=== PATIENT | female | born 1940 | race Caucasian/White ===

== ENCOUNTER → 2017-02-25 | Outpatient (CLI) | payer MEDICARE, BC ==
[~2017-02-25] MED LIST: CHOL10009; ESOM40CA; FENO200C8; FISH1200; FLUT1DIS23; GABA-528; LATA2.5D2 BOTH EYES; SIMV-39; SYN75; TERA1CAP36 PO; [UNRECOGNIZED DRUG - CODE]
--- NOTE | 2017-02-25 15:26 | RADRPT ---
PROCEDURE: XR right knee. CLINICAL INDICATION: Knee pain. TECHNIQUE: AP weightbearing, lateral weightbearing and sunrise views are available for review. COMPARISON: No comparison available FINDINGS: There is a total knee replacement. There is no evidence of loosening of the prosthesis. There is no evidence of hardware failure. There is diffuse osteopenia No acute fracture or dislocation is seen.N o osseous lesions are identified. The soft tissues are unremarkable . IMPRESSION: Diffuse osteopenia Unremarkable total knee replacement. RPTAT: HGDB .Greg Toth MD, MD Date Time Electronically viewed and signed by .Greg Toth MD, on 02/25/2017 15:26 .B/
--- NOTE | 2017-02-25 15:28 | RADRPT ---
PROCEDURE: XR left knee. CLINICAL INDICATION: Knee pain TECHNIQUE: AP weightbearing, PA weightbearing, lateral weightbearing and sunrise views are availab le for review. COMPARISON: None available FINDINGS: There is severe osteoarthrosis involving the medial tibial femoral compartment and moderate osteoart hrosis involving the lateral tibial femoral compartment and the patellofemoral compartment. This is associated with joint space narrowing, subchondral sclerosis and osteophytosis. There is diffuse ost eopenia. No fractures are identified. No osseous lesions are identified. The soft tissues are unr emarkable. IMPRESSION: Diffuse osteopenia Severe osteoarthrosis involving the medial tibial femoral compartment and moderate osteoarthrosis in volving the lateral tibial femoral compartment and the patellofemoral compartment. RPTAT: HGDB .Greg Toth MD, Date Time Electronically viewed and signed by .Greg Toth MD, on 02/25/2017 15:28 .B/
== END | disposition home or self-care (01) ==
LOC: HKI 13:59
PROVIDERS: ATTEND Orthopaedic Surgery
DX: Z09 Encounter for follow-up examination after completed treatment for conditions other than malignant neoplasm (principal); M17.12 Unilateral primary osteoarthritis, left knee; Z96.651 Presence of right artificial knee joint
CPT/HCPCS: G0463

== ENCOUNTER → 2017-04-05 | Outpatient (CLI) | payer MEDICARE, BC ==
--- NOTE | 2017-04-05 11:33 | RADRPT ---
PROCEDURE: Limited x-ray of both lower extremities. CLINICAL INDICATION: Bilateral leg pain. TECHNIQUE: Single frontal view of both lower extremities was obtained from the hips to the calves. COMPARISON: Bilateral knee radiographs dated 02/25/2017. FINDINGS: There are degenerative changes of the hips with joint space narrowing and osteophytes. There is a r ight knee total arthroplasty. There are degenerative changes of the left knee with joint space narr owing and osteophytes with deformity medially. There is diffuse osteopenia. Vascular calcification s are present consistent with atherosclerosis. IMPRESSION: 1. Moderate degenerative changes of the hips. 2. Right knee total arthroplasty. 3. Severe degenerative changes of the left knee. 4. Diffuse osteopenia. 5. Atherosclerosis. RPTAT: QQ .Paulie Martinez MD, MD Date Time Electronically viewed and signed by .Paulie Martinez MD, on 04/05/2017 11:33 .R/
== END | disposition home or self-care (01) ==
LOC: HKI 10:16
PROVIDERS: ATTEND Orthopaedic Surgery
DX: Z47.1 Aftercare following joint replacement surgery (principal); Z96.651 Presence of right artificial knee joint; M85.869 Other specified disorders of bone density and structure, unspecified lower leg; I70.90 Unspecified atherosclerosis
CPT/HCPCS: 77073

== ENCOUNTER 2017-04-11 07:17 | Inpatient (IN) | payer MEDICARE, BC ==
--- NOTE | 2017-04-02 20:42 | PREOPHP ---
DATE OF ADMISSION: 04/11/[address] Castellano: Thank you very much for allowing me to continue in the care of Ms. Crews. HISTORY OF PRESENT ILLNESS: She is a 76-year-old female, single, who is being brought in electively for left knee arthroplasty after failure of conservative medical treatment. PAST MEDICAL HISTORY: 1. Allergic rhinitis. 2. Chronic kidney disease stage II. 3. Eczema. 4. History of gastric ulcer. 5. Vitamin B12 deficiency. 6. History of iron deficiency. 7. Usual childhood diseases. 8. Hypertension. 9. Hyperlipidemia. 10. Asthmatic COPD. 11. Hypothyroidism. 12. Hemorrhoids. 13. Right bundle branch block. 14. Status post right total knee replacement. 15. Status post right hand trigger finger release. 16. Status post cholecystectomy. 17. Status post left hand tendon release. 18. Status post nasal surgery x2. 19. History of adenomatous colon polyps. 20. Chronic lower extremity edema. ALLERGIES: SHE IS ALLERGIC TO AMOXICILLIN, WHICH GIVES HER A RASH. CURRENT MEDICATIONS: 1. Metformin 500 mg 1/2 tablet q.p.m. 2. Gabapentin 800 at bedtime. 3. Nexium 40 mg b.i.d. 4. Levothyroxine 75 mcg once a day. 5. Diltiazem CD 120 once a day. 6. Furosemide 20 mg once a day. 7. Vitamin D 1000 units once a day. 8. Aspirin 81 mg a day. 9. Advair 500/50 one puff b.i.d. 10. Terazosin 1 mg daily. 11. Montelukast 10 mg a day. 12. Prednisolone eyedrops twice a day. 13. Dymista nasal spray. 14. Simbrinza eyedrops twice a day. HABITS: She is a nonsmoker. No alcohol, no usage of recreational drugs. VACCINES: She had Tenivac and pneumococcal vaccine 11/04/2014. SOCIAL HISTORY: She was born in [place] but raised in [facility]. She has a bachelor's d egree without experience. 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 She is single, lives alone. FAMILY HISTORY: Positive for coronary artery disease, positive for diabetes. Negative for hyperten gerry, negative for stroke, negative for asthma, negative for glaucoma, negative for migraine. Posit jey for colon cancer, positive for breast cancer. REVIEW OF SYSTEMS: HEAD AND EYES: Fully negative. EARS, NOSE, THROAT: Notable for rhinitis and otherwise negative. RESPIRATORY: Negative. CARDIAC: Negative, although she has some limited ambulation. GASTROINTESTINAL: Negative. HEMATOLOGIC: Negative. UROLOGIC: Negative. GYNECOLOGIC: Negative. She is G0, P0, AB0. MUSCULOSKELETAL: Notable for the knee pain, otherwise negative. NEUROLOGIC: Negative. PHYSICAL EXAMINATION: VITAL SIGNS: At time of physical exam, she has a weight of 174 pounds. Height is 5 feet 2-1/2 inch es. Blood pressure 135/70, pulse 73, temperature is 99.1. HEENT: NC/AT. PERRL, EOMI, anicteric, fundi are without note. Tympanic membranes are without note . Oropharynx demonstrates no lesions. NECK: Supple. There is a midline trachea. There is no thyromegaly. Pulses are 2+ without bruits. RESPIRATORY: Clear to auscultation and percussion. CARDIAC: No JVD. Regular rate and rhythm without rubs, murmurs or gallops. PMI is discrete and no ndisplaced. BREASTS: No masses, dimpling or excretions. ABDOMEN: Soft, nontender. Active bowel sounds. No hepatosplenomegaly, no CVA tenderness, no herni as, no bruits. EXTREMITIES: No clubbing or cyanosis. There is 1+ edema. NEUROLOGIC: Nonfocal. LABORATORY DATA: Sodium 142, potassium 4.3, chloride 102, bicarbonate 25, BUN 34, creatinine 1.6, r andom postprandial sugar 120. White count 10.8, hemoglobin 12.3, hematocrit 37.3, platelet count is 225. Protime 11.1 with an INR of 0.93, PTT is 24 seconds. Urinalysis 1.020, pH of 5.5, trace keto peg, trace protein. EKG demonstrates sinus rhythm at 80 with intervals 0.15, 0.11, 0.43, incomplete right bundle branch block and unchanged versus prior EKGs. Chest x-ray was unremarkable. ASSESSMENT AND PLAN: Preoperative medical consultation prior to elective total knee arthroplasty on the left. At this time, I find Ms. Crews to be an acceptable surgical candidate and concur with your plans to proceed with surgery. She is at average surgical risk as compared to her age-matched peers. 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 She should ot herwise do well using all standard and routine anesthesia precautions. Respectfully yours, Dictated By: ANASTACIA CHESTER MD, JR/NTS Conf#: [id number] DID#: [id number] CC: MARIA DEL ROSARIO CASTELLANO MD;*EndCC*
[2017-04-10 10:03] VITALS: BMI 29.3
[~2017-04-11] VITALS: Ht 160 cm; Wt 77.1 kg
[2017-04-11] VITALS (37 sets, daily range): BP systolic 127–160; BP diastolic 49–78; PULSE 62–80; RESP 13–28; Ht 160 cm; Wt 77.1 kg
[2017-04-11] MEDS ORDERED: METF500T3 PO (08:24)
[2017-04-11] MEDS ORDERED: GABA-528 PO (08:25)
[2017-04-11] MEDS ORDERED: ESOM40CA PO (08:26)
[2017-04-11] MEDS ORDERED: LEVO75TA5 PO (08:27)
[2017-04-11] MEDS ORDERED: DILT120C77 PO (08:28)
[2017-04-11] MEDS ORDERED: FURO40TA4 PO (08:29)
[2017-04-11] MEDS ORDERED: ASPI81TA3 PO (08:30)
[2017-04-11] MEDS ORDERED: CHOL100062 PO (08:30)
[2017-04-11] MEDS ORDERED: LACT1CAP56 PO (08:32)
[2017-04-11] MEDS ORDERED: MONT10TA24 PO (08:35)
[2017-04-11] MEDS ORDERED: ADV25050 INHALATION (08:35)
[2017-04-11] MEDS ORDERED: VIT1TABL33 PO (08:35)
[2017-04-11] MEDS ORDERED: BRIN8DRO BOTH EYES (08:36)
[2017-04-11] MEDS ORDERED: LOTE5DRO3 BOTH EYES (08:36)
[2017-04-11] MEDS ORDERED: AZEL23SP NASAL (08:37)
[2017-04-11] MEDS ORDERED: CIPR500T4 PO (08:37)
[2017-04-11] MEDS ORDERED: HC20CR25 TOP (08:37)
[2017-04-11] MEDS ORDERED: oxyCODONE (CR) 10 MG TAB [oxyCONTIN] X1 DOSE PO SCH (09:00)
[2017-04-11] MEDS ORDERED: CELECOXIB 400 MG PO X1 DOSE PO SCH (09:00)
[2017-04-11] MEDS ORDERED: EXPAREL NOTE (BUPIVICAINE LIPOSOMAL) XX SCH (09:00)
[2017-04-11] MEDS ORDERED: BUPIVACAINE LIPOSOME/PF 266 MG/20 ML VIAL INFIL SCH (09:00)
[2017-04-11] MEDS ORDERED: TRANEXAMIC ACID 750 MG in SOD CHLORIDE 0.9% 92.5 ML IV SCH (09:00)
[2017-04-11] MEDS ORDERED: PAIN COCKTAIL-CEFUROXIME IRR SCH ×7 (09:00)
[2017-04-11] MEDS ORDERED: ONDANSETRON 4 MG IV X 1 DOSE IV SCH (09:00)
[2017-04-11] MEDS ORDERED: PREGABALIN 300 MG PO X1 PO SCH (09:00)
[2017-04-11] MEDS ORDERED: LACTATED RINGER'S 1,000 ML IV SCH ×2 (09:00→10:21)
[2017-04-11] MEDS ORDERED: CEFAZOLIN 2GM/50 ML (PMX) 50 ML X1 BEFORE INCISION IVPB SCH (09:00)
[2017-04-11] MEDS ORDERED: traMADOL 50 MG TAB X 1 DOSE PO SCH (09:00)
[2017-04-11] MEDS ORDERED: TRANEXAMIC ACID 750 MG in SOD CHLORIDE 0.9% 100 ML IVPB SCH (09:00)
[2017-04-11] MEDS ORDERED: PROPOFOL 20 ML ONE (09:29)
[2017-04-11] MEDS ORDERED: CEFAZOLIN 1 GM INJ ONE (09:29)
[2017-04-11] MEDS ORDERED: FENTAnyl 50 MCG/ML VIAL ONE (09:29)
[2017-04-11] MEDS ORDERED: MIDAZOLAM 1 MG/ML 2 ML INJ ONE (09:29)
[2017-04-11] MEDS ORDERED: NEOSTIGMINE 3 MG/3 ML SYRINGE ONE (09:29)
[2017-04-11] MEDS ORDERED: ONDANSETRON 4 MG INJ ONE (09:29)
[2017-04-11] MEDS ORDERED: ROCURONIUM 50 MG INJ ONE (09:29)
[2017-04-11] MEDS ORDERED: GLYCOPYRROLATE 0.4 MG INJ ONE (09:29)
[2017-04-11] MEDS ORDERED: DEXAMETHASONE 4 MG/ML 1 ML INJ ONE (09:30)
[2017-04-11] MEDS ORDERED: VANCOMYCIN 1 GM INJ ONE (10:14)
[2017-04-11] MEDS ORDERED: POLYMYXIN B 500000 UNIT INJ ONE (10:14)
[2017-04-11] MEDS ORDERED: BACITRACIN 50000 UNITS INJ ONE (10:17)
--- NOTE | 2017-04-11 10:21 | HPN ---
Date/Time of Note Date/Time of Note DATE: 04/11/17 TIME: 10:20 Interval H&P Admission Note Pt. seen H&P reviewed: No system changes No change from H&P on 04/02/17 by MARIA DEL ROSARIO Fitzpatrick MD Apr 11, 2017 10:20
[2017-04-11] MEDS ORDERED: HEPARIN 1000 UNITS/ML 10 ML INJ ONE (10:25)
[2017-04-11] MEDS ORDERED: MAGNESIUM HYDROXIDE 30ML CUP PO PRN ×2 (10:30→13:30)
[2017-04-11] MEDS ORDERED: ONDANSETRON 4 MG INJ IV PRN ×3 (10:30→13:30)
[2017-04-11] MEDS ORDERED: oxyCODONE 5 MG TAB PO PRN ×4 (10:30→13:30)
[2017-04-11] MEDS ORDERED: NA PHOSPHATE/BIPHOS 133 ML ENEMA PR PRN ×2 (10:30→13:30)
[2017-04-11] MEDS ORDERED: BISACODYL 10 MG SUPP PR PRN ×2 (10:30→13:30)
[2017-04-11] MEDS ORDERED: DIPHENHYDRAMINE 25 MG CAP PO PRN ×2 (10:30→13:30)
[2017-04-11] MEDS ORDERED: NACL 0.9% 3 ML SYG IV SCH ×2 (10:30→13:30)
[2017-04-11] MEDS ORDERED: HYDROmorphONE 1 MG/ML SYG IV PRN ×2 (10:30→13:30)
[2017-04-11] MEDS ORDERED: FENTAnyl 50 MCG/ML VIAL IV PRN ×3 (12:00)
[2017-04-11] MEDS ORDERED: MIDAZOLAM 1 MG/ML 2 ML INJ IV PRN (12:00)
[2017-04-11] MEDS: traMADol 50 MG TAB PO SCH ×2 (12:00→18:00)
[2017-04-11] MEDS ORDERED: EPHEDrine SULFATE 50 MG/5 ML SYG IV PRN (12:00)
[2017-04-11] MEDS ORDERED: OXYCODONE/ACETAMINOPHEN (5/325) TAB PO PRN ×2 (12:00)
[2017-04-11] MEDS ORDERED: TRIMETHOBENZAMIDE 100 MG/ML VIAL IM PRN (12:00)
[2017-04-11] MEDS ORDERED: ACETAMINOPHEN 1000MG/100ML IV 100 ML IVPB SCH (12:00)
[2017-04-11] MEDS ORDERED: LABETALOL HCL 20MG INJ IV PRN (12:00)
[2017-04-11] MEDS ORDERED: HYDROmorphONE (0.2 MG/ML) 10ML SYG IV PRN ×3 (12:00)
[2017-04-11] MEDS ORDERED: DIPHENHYDRAMINE 50 MG INJ IV PRN (12:00)
[2017-04-11] MEDS ORDERED: traMADol 50 MG TAB PO SCH (12:00)
[2017-04-11] MEDS ORDERED: CEFAZOLIN 2 GM/50 ML (PMX) 50 ML IVPB SCH (12:00)
[2017-04-11] MEDS ORDERED: MEPERIDINE 25 MG INJ IV PRN (12:00)
[2017-04-11] MEDS ORDERED: hydrALAzine 20 MG INJ IV PRN (12:00)
[2017-04-11] MEDS ORDERED: PROPOFOL 100 ML ONE (12:33)
[2017-04-11] MEDS ORDERED: ETOMIDATE 20 MG INJ ONE (12:33)
--- NOTE | 2017-04-11 13:16 | OPR ---
Date/Time of Note Date/Time of Note DATE: 04/11/17 TIME: 13:11 Operative Report Procedure Description DATE: 04/11/2017 PREOPERATIVE DIAGNOSIS: Left knee osteoarthritis POSTOPERATIVE DIAGNOSIS: Left knee osteoarthritis OPERATION PERFORMED: Left total knee arthroplasty. SURGEON: Audi Castellano MD COMPONENTS USED: DePuy attune size 5 narrow femoral component, size 4 tibial baseplate, 6 mm polyethylene insert, 32 patella ANESTHESIA: Spinal plus general endotracheal intubation, plus femoral nerve catheter. ANESTHESIOLOGIST: Dr. Gutiérrez TOURNIQUET TIME: 52 minutes. ESTIMATED BLOOD LOSS: 50 mL INTRAVENOUS FLUIDS: 2200 mL SPECIMENS: Bone and soft tissue. DRAINS: Hemovac x1. COMPLICATIONS: None. DISPOSITION: The patient tolerated the procedure well and was taken to the recovery room in stable condition. INDICATIONS: The patient is a 76-year-old woman who has developed severe osteoarthritis of the left knee. She has failed nonsurgical means of treatment to address her pain including activity modifications, pain medications, intra- articular injections, and ambulatory assist devices. Despite these measures she has had continued pain. I felt the patient would benefit from a total knee arthroplasty. The risks, benefits, and alternatives of the procedure were explained in detail to the patient. I explained the risks of the surgery to include but not be limited to, bleeding and possible need for blood transfusion; infection; pain; stiffness; neurovascular injury with possible numbness, weakness, and/or paralysis anywhere from the knee down to the toes; fracture; instability; dislocation; wear and/or loosening of the prosthesis and possible need for future revision; blood clots; pulmonary embolism; and anesthetic complications such as heart attack, stroke, GI bleed, pneumonia, and/or . Ample time was allowed for the patient to ask questions, all of which were addressed and answered. The patient understood the risks involved and wished to proceed. Informed consent was signed prior to the procedure. PROCEDURE: The patient's left knee was initialed with a marking pen in the preoperative area to identify the correct operative site. The patient was brought to the operating room and transferred from the [facility] to the operating table where a spinal anesthetic was administered. The patient was then anesthetized and intubated. A Lawrence catheter was placed. A timeout was performed to confirm that the left leg was the correct operative site. The patient was given 2 g of Ancef within one hour prior to the procedure. A tourniquet was placed on the operative proximal thigh. The operative knee and lower extremity were prepped and draped in the usual sterile fashion. The operative lower extremity was elevated and exsanguinated with an Esmarch tourniquet. The proximal thigh tourniquet was inflated to 300 mmHg. The knee was flexed. A midline incision was made and carried down through the subcutaneous tissue and fat with sharp dissection. Limited medial and lateral flaps were raised. A median parapatellar approach was performed. Synovial fluid was normal in color and consistency. The patella was everted and the knee flexed. There were severe tricompartmental osteoarthritic changes noted. A medial release was performed at the joint line to the midcoronal plane. The ACL and PCL and remnants of the menisci were excised. The stepped drill was used to open up the femoral canal which was irrigated and sucked dry. The intramedullary guide akila was passed up the femur, and the distal cutting block was pinned into place for a 6 degree valgus cut, taking 10 mm of bone off distally. The oscillating saw was used to make the cut. The tibia was subluxed anteriorly. The tibial cutoff jig was placed over the center of the talus distally and over the junction of the medial and middle third of the tibial tubercle proximally. The guide was pinned into place and the oscillating saw was used to make the cut. The tibia was sized. The extension gap was checked and accommodated a 6 mm spacer block with the knee in full extension. There was no varus or valgus instability. At this point, the femur was sized with the posterior referencing guide. Two holes were drilled in 3 degrees of external rotation. The two holes were in line with the transepicondylar axis, perpendicular to Lagrange's line, and in line with the tibial cutoff jig brought up with the knee flexed 90 degrees and tensed with 2 lamina spreaders, suggesting the femoral rotation was correct. The four-in-one cutting block was pinned into place. The anterior and posterior cuts and chamfer cuts were made with the oscillating saw. The flexion gap was checked and accommodated the 6 mm spacer block at 90 degrees. There was no varus or valgus instability, suggesting the flexion and extension gaps were now equal. The central box was cut out on the femur. The tibia was drilled and punched in proper rotation. Trial components were placed into position with a trial insert. The patella was cut down to 13 mm and sized. Three holes were drilled and the trial button placed in position. With all the trials now in place, the knee was taken through range of motion and came to full extension as evidenced by the fact that with the foot on my abdomen and axial loading, there was no tendency for the knee to flex. The knee was able to be flexed to 125 degrees with good patellar tracking with no lateral tilt or subluxation. At this point, I was satisfied with the overall range of motion, stability, and patellar tracking. The trials were removed. The real components were opened. Two bags of cement were mixed, one with and one without premixed antibiotic. The knee was irrigated with antibiotic saline and sucked dry. Once the cement was in a doughy stage, the real components were cemented into place. The knee was held in full extension, and the patellar component was held with a patellar clamp. All excess cement was removed with curettes. As the cement was hardening, the synovial/capsular layer was infiltrated with a mixture of 150 mg of 0.5% Bupivacaine, 8 mg of Duramorph, 300 mcg of epinephrine, 30 mg of Toradol, 100 mcg of clonidine, 750 mg of cefuroxime and 86 mL of normal saline, followed by an injection of 266 mg of liposomal Bupivacaine. A Hemovac drain was placed in the deep portion of the wound and brought out the anterolateral thigh. Once the cement was completely hardened, the trial liner was removed, and the real insert was opened. The tourniquet was let down, and there was good hemostasis. The knee was then irrigated with a mixture of betadine/saline and then antibiotic saline with pulsatile lavage. The real insert was impacted into the tibia and reduced onto to the femur. The arthrotomy was closed with a few interrupted #1 Ethibond in a figure-of- eight fashion, and then closed in a watertight fashion with a running #2 Stratafix suture. Knee flexion was checked against gravity and came to 125 degrees. The subcutaneous layer was irrigated and closed with 2-0 Statafix, and then 3-0 Vicryl and then juan luis on the skin. The wound was covered with an occlusive dressing, and secured with cast padding and a bias dressing. The drain was secured with 3-0 nylon. The sponge and needle counts were correct at the end of the case. The patient was then awakened, extubated, and taken to the recovery room in stable condition. AUDI CASTELLANO MD Apr 11, 2017 13:16
[2017-04-11] MEDS ORDERED: ASPIRIN (EC) 325 MG TAB PO ONE (13:30)
[2017-04-11 13:37] LABS: HEMATOCRIT 34.1 % (37.0-47.0); HEMOGLOBIN 10.2 g/dl (12.0-16.0)
--- NOTE | 2017-04-11 13:56 | CONS ---
Date/Time of Note Date/Time of Note DATE: 04/11/17 TIME: 13:51 Assessment/Plan Assessment/Plan Problems: (1) Aftercare following knee joint replacement surgery Status: Acute Comment: She is successfully postop and seen in recovery room. There does not appear to be any immediate postoperative complications. Will follow routine protocols postoperatively for DVT prophylaxis wound care etc. In addition she will be managed for other medical issues. Qualifiers: Laterality: left Qualified Code: Z47.1 - Aftercare following left knee joint replacement surgery (2) Acquired hypothyroidism Status: Chronic Comment: Continue replacement therapy. (3) Moderate persistent asthma Status: Chronic Comment: Continue routine prophylactic controller treatment Qualifiers: Asthma complication type: uncomplicated Qualified Code: J45.40 - Moderate persistent asthma without complication (4) Type 2 diabetes mellitus with diabetic polyneuropathy Status: Chronic Comment: Stable continue outpatient treatment Qualifiers: Diabetes mellitus ocean transportation intermediary insulin use: without ocean transportation intermediary use Qualified Code: E11.42 - Type 2 diabetes mellitus with diabetic polyneuropathy, without long-term current use of insulin (5) Essential (primary) hypertension Status: Chronic Comment: Adequate control (6) B12 deficiency Status: Chronic Comment: Continue replacement therapy (7) Hyperlipidemia associated with type 2 diabetes mellitus Status: Chronic Comment: Continue statin therapy (8) Allergic rhinitis Status: Chronic Comment: No systemic steroids for this inhaled nasal sprays only. Qualifiers: Allergic rhinitis trigger: other Allergic rhinitis seasonality: non- seasonal Qualified Code: J30.89 - Non-seasonal allergic rhinitis due to other allergic trigger Consultation Date/Type/Reason Admit Date/Time Apr 11, 2017 at 07:17 Initial Consult Date 04/11/2017 Type of Consultation: Internal medicine Reason for Consultation Asthmatic COPD; allergic rhinitis; vitamin B12 deficiency; essential hypertension; diabetes mellitus type 2; hypothyroidism; hyperlipidemia Referring Provider: MARIA DEL ROSARIO CASTELLANO MD 24 HR Interval Summary Free Text/Dictation Linda 76-year-old female status post joint replacement surgery successfully. She is seen in the recovery roompostanesthesia care unit. At this time she complains of dry mouth but otherwise is without complaints Constitutional: no complaints Detailed Summary Respiratory: no complaints Cardiovascular: no complaints Gastrointestinal: no complaints Exam/Review of Systems Vital Signs Vitals Vital Signs Date Time Temp Pulse Resp B/P Pulse Ox O2 Delivery O2 Flow Rate FiO2 04/11/17 09:24 98.2 70 16 160/71 94 Exam Constitutional: alert, oriented Neck: non-tender, supple Respiratory: clear to auscultation, normal air movement Cardiovascular: nl pulses, regular rate and rhythm Gastrointestinal: nl liver, spleen, non-tender, soft Results Result Diagram: 04/11/17 1320 Results 24 hrs Laboratory Tests Test 04/11/17 09:17 04/11/17 13:06 04/11/17 13:20 Bedside Glucose 95 131 Hemoglobin 10.2 L Hematocrit 34.1 L Medications Medications Current Medications Lactated Ringer's (Lr) 1,000 ml @ 125 mls/hr Q8H IV ; Start 04/11/17 at 13:16 Celecoxib 200 mg 200 mg DAILY PO ; Start 04/12/17 at 09:00 Acetaminophen (Ofirmev 1000mg/ 100ml Iv) 100 ml @ 400 mls/hr Q6 IVPB ; Start at 18:00; Stop 04/12/17 at 17:59 Tramadol HCl (Ultram) 50 mg Q6 PO ; Start 04/11/17 at 12:00; Stop 04/14/17 at 11: 59 Oxycodone HCl (Roxicodone) 5 mg Q4H PRN PO PAIN LEVEL 1-3; Start 04/11/17 at 13 :30 Oxycodone HCl (Roxicodone) 10 mg Q4H PRN PO PAIN LEVEL 4-7; Start 04/11/17 at 13:30 Hydromorphone HCl 1 mg 1 mg Q3H PRN IV PAIN LEVEL 8-10; Start 04/11/17 at 13:30 Cefazolin Sodium/ Dextrose (Ancef 2 Gm/50 ml (Pmx)) 50 ml @ 100 mls/hr Q8H IVPB ; Start 04/11/17 at 13:30; Stop 04/12/17 at 05:59 Ondansetron HCl (Zofran Inj) 4 mg Q6H PRN IV NAUSEA AND/OR VOMITING; Start at 13:30 Bisacodyl (Dulcolax Supp) 10 mg Q12H PRN LA CONSTIPATION; Start 04/11/17 at 13: 30 Magnesium Hydroxide (Milk Of Mag) 30 ml BID PRN PO CONSTIPATION; Start at 13:30 Sodium Biphosphate/ Sodium Phosphate (Fleet Enema) 133 ml DAILY PRN LA CONSTIPATION; Start 04/11/17 at 13:30 Docusate Sodium (Colace) 100 mg BID PO ; Start 04/11/17 at 21:00 Diphenhydramine HCl (Benadryl) 25 mg Q6H PRN PO PRURITUS; Start 04/11/17 at 13: 30 Aspirin (Ecotrin) 325 mg BID PO ; Start 04/12/17 at 09:00 Pantoprazole (Protonix Tab) 40 mg BID@06,18 PO ; Start 04/11/17 at 18:00 Pregabalin (Lyrica) 50 mg BID PO ; Start 04/11/17 at 21:00 ANASTACIA CHESTER MD Apr 11, 2017 13:56
[2017-04-11 13:57] LABS: CALCIUM 8.7 mg/dl (8.4-10.2); CREATININE 2.51 mg/dl (0.44-1.00); POTASSIUM 4.8 mmol/L (3.5-5.1)
[2017-04-11] MEDS ORDERED: CYANOCOBALAMIN 1000 MCG INJ IM ONE ×2 (14:00→21:00)
[2017-04-11] MEDS: CEFAZOLIN 2 GM/50 ML (PMX) 50 ML IVPB SCH ×2 (15:55→21:52)
[2017-04-11] MEDS ORDERED: metFORMIN (XR) 500 MG TAB PO SCH (17:30)
--- NOTE | 2017-04-11 17:53 | RADRPT ---
PROCEDURE: Left knee x-ray CLINICAL INDICATION: Postop TECHNIQUE: AP and lateral views of the left knee were obtained. COMPARISON: 02/25/2017 FINDINGS: The patient is status post left knee arthroplasty. The prostheses appear to be well seated. No acu te fracture or dislocation seen. There is nonspecific approximate 1 x 0.5 cm oval calcific appearing density projected anterior to the knee joint on the AP view not seen on the lateral view. Surgical drain. Skin juan luis. Soft tissue air consistent with surgery. Arterial calcification. IMPRESSION: Status post left knee arthroplasty. Nonspecific approximate 1 x 0.5 cm oval calcific appearing dens ity projected anterior to the knee joint on the AP view not seen on the lateral view. Prostheses ap pear to be well seated. Please see above. RPTAT: HJES .Hiram Carrero MD, Date Time Electronically viewed and signed by .Hiram Carrero MD, on 04/11/2017 17:53 .S/
[2017-04-11] MEDS ORDERED: PANTOPRAZOLE (EC) 40 MG TAB PO SCH ×2 (18:00)
[2017-04-11] MEDS: ACETAMINOPHEN 1000MG/100ML IV 100 ML IVPB SCH (18:07)
[2017-04-11] MEDS: CIPROFLOXACIN 500 MG TAB PO SCH (18:11)
[2017-04-11] MEDS: LACTATED RINGER'S 1,000 ML IV SCH ×2 (19:01→21:16)
[2017-04-11] MEDS: BRIMONIDINE 0.2% 5 ML BTL BOTH EYES SCH (21:00)
[2017-04-11] MEDS ORDERED: HYDROCORTISONE 2.5% 20 GM CR TOP SCH (21:00)
[2017-04-11] MEDS ORDERED: NON-FORMULARY/PATIENT OWN MED (Azelastine/Fluticasone (Dymista Nasal Spray) 1 SPRAY) NASAL SCH (21:00)
[2017-04-11] MEDS ORDERED: MONTELUKAST 10 MG TAB PO SCH (21:00)
[2017-04-11] MEDS ORDERED: GABAPENTIN 400 MG CAP PO SCH (21:00)
[2017-04-11] MEDS ORDERED: SALMETEROL/FLUTICASONE 250/50 INHA INH SCH (21:00)
[2017-04-11] MEDS ORDERED: DOCUSATE SODIUM 100 MG CAP PO SCH (21:00)
[2017-04-11] MEDS ORDERED: ASPIRIN (EC) 325 MG TAB PO SCH (21:00)
[2017-04-11] MEDS: TERAZOSIN 1 MG CAP PO SCH (21:00)
[2017-04-11] MEDS ORDERED: CIPROFLOXACIN 500 MG TAB PO SCH (21:00)
[2017-04-11] MEDS: BRINZOLAMIDE 1% 10ML OPH BOTH EYES SCH (21:51)
[2017-04-11] MEDS: SALMETEROL/FLUTICASONE 500/50 INHA INH SCH (21:52)
[2017-04-11] MEDS: GABAPENTIN 400 MG CAP PO SCH (21:53)
[2017-04-11] MEDS: MONTELUKAST 10 MG TAB PO SCH (21:54)
[2017-04-11] MEDS: DOCUSATE SODIUM 100 MG CAP PO SCH (21:54)
[2017-04-11] MEDS: PREGABALIN 50 MG CAP PO SCH (22:00)
[2017-04-12] MEDS: ACETAMINOPHEN 1000MG/100ML IV 100 ML IVPB SCH ×3 (00:14→12:44)
[2017-04-12] MEDS: traMADol 50 MG TAB PO SCH ×4 (00:14→18:01)
[2017-04-12 03:13] LABS: UR BILIRUBIN (Dip) NEGATIVE (NEGATIVE); UR BLOOD (Dip) NEGATIVE (NEGATIVE); UR CLARITY CLEAR (CLEAR); UR COLOR LT. YELLOW (YELLOW); UR GLUCOSE (Dip) NEGATIVE (NEGATIVE); UR KETONES (Dip) NEGATIVE (NEGATIVE); UR LEUKOCYTE ESTERASE (Dip) NEGATIVE (NEGATIVE); UR NITRITE (Dip) NEGATIVE (NEGATIVE); UR UROBILINOGEN (Dip) 0.2 E.U./dL (0.1-1.0)
[2017-04-12] MEDS: LACTATED RINGER'S 1,000 ML IV SCH ×3 (03:14→20:40)
[2017-04-12 03:15] LABS: ADD UMIC NO; UR TOTAL PROTEIN (Dip) NEGATIVE (NEGATIVE)
[2017-04-12 03:17] VITALS: BP 142/60; PULSE 64; RESP 16
[2017-04-12 05:26] LABS: HEMATOCRIT 30.9 % (37.0-47.0); HEMOGLOBIN 9.5 g/dl (12.0-16.0)
[2017-04-12] MEDS: LEVOTHYROXINE 75 MCG TAB PO SCH (05:29)
[2017-04-12] MEDS: PANTOPRAZOLE (EC) 40 MG TAB PO SCH (05:30)
[2017-04-12] MEDS: CEFAZOLIN 2 GM/50 ML (PMX) 50 ML IVPB SCH (05:30)
[2017-04-12 05:51] LABS: CALCIUM 8.4 mg/dl (8.4-10.2); CREATININE 1.98 mg/dl (0.44-1.00); POTASSIUM 5.4 mmol/L (3.5-5.1)
[2017-04-12] MEDS ORDERED: LEVOTHYROXINE 75 MCG TAB PO SCH (07:00)
[2017-04-12 07:23] VITALS: BP 152/68; RESP 18
[2017-04-12] MEDS: PREGABALIN 50 MG CAP PO SCH ×2 (08:49→20:40)
[2017-04-12] MEDS: CELECOXIB 200 MG CAP PO SCH (08:49)
[2017-04-12] MEDS: DOCUSATE SODIUM 100 MG CAP PO SCH ×2 (08:49→20:38)
[2017-04-12] MEDS: ASPIRIN (EC) 325 MG TAB PO SCH ×2 (08:49→20:38)
[2017-04-12] MEDS: DILTIAZEM (CD) 120 MG CAP PO SCH (08:50)
[2017-04-12] MEDS: BRIMONIDINE 0.2% 5 ML BTL BOTH EYES SCH ×2 (08:50→20:41)
[2017-04-12] MEDS: BRINZOLAMIDE 1% 10ML OPH BOTH EYES SCH ×2 (08:50→20:37)
[2017-04-12] MEDS: FLUTICASONE 0.05% 16 GM NAS SPRAY NASAL SCH (08:50)
[2017-04-12] MEDS: SALMETEROL/FLUTICASONE 500/50 INHA INH SCH ×2 (08:50→20:37)
[2017-04-12] MEDS: L ACIDOPHIL/B LACTIS/B LONGUM CAPSULE PO SCH (08:51)
--- NOTE | 2017-04-12 08:57 | PN ---
Date/Time of Note Date/Time of Note DATE: 04/12/17 TIME: 08:56 Assessment/Plan Lines/Catheters IV Catheter Type (from Nrsg): Peripheral IV Lawrence in Place (from Nrsg): Yes Assessment/Plan Assessment/Plan POD # 1. Stable. -Drain d/c'd -OOB with PT -Pain meds -ASA/SCDS -Plan for d/c to [facility] on Sat or Sun Subjective 24 Hr Interval Summary Doing well. Minimal pain. Exam/Review of Systems Vital Signs Vitals Vital Signs Date Time Temp Pulse Resp B/P Pulse Ox O2 Delivery O2 Flow Rate FiO2 04/12/17 07:23 97.5 60 18 152/68 98 04/12/17 03:17 Nasal Cannula 2.0 Intake and Output 04/11/17 04/11/17 04/12/17 15:00 23:00 07:00 Intake Total 2200 ml 290 ml 1830 ml Output Total 100 ml 320 ml 840 ml Balance 2100 ml -30 ml 990 ml Exam Free Text/Dictation Hemovac: 160 cc Dressing dry Incision clean, dry, and intact without redness or drainage 5/5 Tibialis Anterior, EHL, Gastroc Soleus, Peroneals Normal sensation Palpable DP/PT, CR < 2 Sec No distal edema Xrays: TKA in good position Results Result Diagram: 04/12/1741904/12/17419 MARIA DEL ROSARIO CASTELLANO MD Apr 12, 2017 08:57
[2017-04-12] MEDS ORDERED: metFORMIN (XR) 500 MG TAB PO SCH (09:00)
[2017-04-12] MEDS ORDERED: CELECOXIB 200 MG CAP PO SCH (09:00)
[2017-04-12] MEDS ORDERED: COPPER PO SCH (09:00)
[2017-04-12] MEDS ORDERED: DILTIAZEM (CD) 120 MG CAP PO SCH (09:00)
[2017-04-12] MEDS ORDERED: CHOLECALCIFEROL 1,000 UNIT TAB PO SCH (09:00)
[2017-04-12] MEDS ORDERED: VIT A PO SCH (09:00)
[2017-04-12] MEDS ORDERED: [UNRECOGNIZED DRUG - OTHER] PO SCH (09:00)
[2017-04-12] MEDS ORDERED: FUROSEMIDE 40 MG TAB PO SCH (09:00)
[2017-04-12] MEDS ORDERED: VIT C PO SCH (09:00)
[2017-04-12] MEDS ORDERED: ZINC PO SCH (09:00)
[2017-04-12] MEDS ORDERED: VIT E PO SCH (09:00)
[2017-04-12] MEDS ORDERED: LOTEPREDNOL ETABONATE BOTH EYES SCH (09:00)
--- NOTE | 2017-04-12 13:46 | PN ---
Date/Time of Note Date/Time of Note DATE: 04/12/17 TIME: 13:43 Assessment/Plan VTE Prophylaxis VTE Prophylaxis Intervention: heparin Lines/Catheters IV [facility]from [facility] Peripheral IV Urinary Cath still in place: Yes Reason Cath still needed: urinary retention Assessment/Plan Problems: (1) Acquired hypothyroidism Status: Chronic Comment: Stable on replacement therapy continue same. (2) Moderate persistent asthma Status: Chronic Comment: Well-controlled on stable controller medications without incident. Qualifiers: Asthma complication type: uncomplicated Qualified Code: J45.40 - Moderate persistent asthma without complication (3) Type 2 diabetes mellitus with diabetic polyneuropathy Status: Chronic Comment: Adequate control on current medication regimen. No polys no hypo- Qualifiers: Diabetes mellitus halfway insulin use: without termite control representative use Qualified Code: E11.42 - Type 2 diabetes mellitus with diabetic polyneuropathy, without long-term current use of insulin (4) Essential (primary) hypertension Status: Chronic Comment: Adequate control on current regimen (5) Aftercare following knee joint replacement surgery Status: Acute Comment: She is going through physical therapy and progressing nominally. Assuming everything goes well the plan is for her to go to an ECF in the next 24 -48 hours Qualifiers: Laterality: left Qualified Code: Z47.1 - Aftercare following left knee joint replacement surgery (6) Hyperlipidemia associated with type 2 diabetes mellitus Status: Chronic Comment: Controlled with statin therapy (7) B12 deficiency Status: Chronic Comment: Adequately replaced Subjective 24 Hr Interval Summary Free Text/Dictation Patient is up and ambulating with a front wheeled walker with physical therapy now Constitutional: no complaints (No fevers chills or sweats) Respiratory: no complaints (No cough no wheezing no shortness of breath) Cardiovascular: no complaints (No chest pain no palpitations no orthopnea no PND) Gastrointestinal: no complaints Musculoskeletal: other (Pain behind the left knee that was operated otherwise doing well) Exam/Review of Systems Vital Signs Vitals Vital Signs Date Time Temp Pulse Resp B/P Pulse Ox O2 Delivery O2 Flow Rate FiO2 04/12/17 07:23 97.5 60 18 152/68 98 04/12/17 03:17 Nasal Cannula 2.0 Intake and Output 04/11/17 04/11/17 04/12/17 15:00 23:00 07:00 Intake Total 2200 ml 290 ml 1830 ml Output Total 100 ml 320 ml 840 ml Balance 2100 ml -30 ml 990 ml Exam Constitutional: alert, oriented Neck: non-tender, supple Respiratory: clear to auscultation, normal air movement Cardiovascular: nl pulses, regular rate and rhythm Extremities: other (Left leg bandaged but in motion) Neurological: 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 YELLOW Urine Clarity CLEAR Urine pH 5.5 Urine Specific Babb >=1.030 H Urine Ketones NEGATIVE Urine Nitrite NEGATIVE Urine Bilirubin NEGATIVE Urine Urobilinogen 0.2 E.U./dL Urine Leukocyte Esterase NEGATIVE Urine Hemoglobin NEGATIVE Urine Glucose NEGATIVE Urine Total Protein NEGATIVE Hemoglobin 9.5 L Hematocrit 30.9 L Sodium Level 133 L Potassium Level 5.4 H Chloride Level 102 Carbon Dioxide Level 24 Anion Gap 12 Blood Urea Nitrogen 42 H Creatinine 1.98 H Glucose Level 165 Calcium Level 8.4 Bedside Glucose 131 Medications Medications Current Medications Lactated Ringer's (Lr) 1,000 ml @ 125 mls/hr Q8H IV Last administered on 03:14; Admin Dose 125 MLS/HR; Start 04/11/17 at 13:16 Celecoxib 200 mg 200 mg DAILY PO Last administered on 04/12/17 08:49; Admin Dose 200 MG; Start 04/12/17 at 09:00 Acetaminophen (Ofirmev 1000mg/ 100ml Iv) 100 ml @ 400 mls/hr Q6 IVPB Last administered on 04/12/17 12:44; Admin Dose 400 MLS/HR; Start 04/11/17 at 18:00 ; Stop 04/12/17 at 17:59 Tramadol HCl (Ultram) 50 mg Q6 PO Last administered on 04/12/17 12:44; Admin Dose 50 MG; Start 04/11/17 at 12:00; Stop 04/14/17 at 11:59 Oxycodone HCl (Roxicodone) 5 mg Q4H PRN PO PAIN LEVEL 1-3; Start 04/11/17 at 13 :30 Oxycodone HCl (Roxicodone) 10 mg Q4H PRN PO PAIN LEVEL 4-7; Start 04/11/17 at 13:30 Hydromorphone HCl (Dilaudid) 1 mg Q3H PRN IV PAIN LEVEL 8-10; Start 04/11/17 at 13:30 Ondansetron HCl (Zofran Inj) 4 mg Q6H PRN IV NAUSEA AND/OR VOMITING; Start at 13:30 Bisacodyl (Dulcolax Supp) 10 mg Q12H PRN [place] CONSTIPATION; Start 04/11/17 at 13: 30 Magnesium Hydroxide (Milk Of Mag) 30 ml BID PRN PO CONSTIPATION; Start at 13:30 Sodium Biphosphate/ Sodium Phosphate (Fleet Enema) 133 ml DAILY PRN [place] CONSTIPATION; Start 04/11/17 at 13:30 Docusate Sodium (Colace) 100 mg BID PO Last administered on 04/12/17 08:49; Admin Dose 100 MG; Start 04/11/17 at 21:00 Diphenhydramine HCl (Benadryl) 25 mg Q6H PRN PO PRURITUS; Start 04/11/17 at 13: 30 Aspirin (Ecotrin) 325 mg BID PO Last administered on 04/12/17 08:49; Admin Dose 325 MG; Start 04/12/17 at 09:00 Pregabalin (Lyrica) 50 mg BID PO Last administered on 04/12/17 08:49; Admin Dose 50 MG; Start 04/11/17 at 21:00 Brinzolamide (Azopt) 1 drop BID BOTH EYES Last administered on 04/12/17 08:50 ; Admin Dose 1 DROP; Start 04/11/17 at 21:00 Lactobacillus Acidophilus (Florajen3 Capsule) 1 each DAILY PO Last administered on 04/12/17 08:51; Admin Dose 1 EACH; Start 04/12/17 at 09:00 Pantoprazole (Protonix Tab) 40 mg DAILY@06 PO Last administered on 04/12/17 05 :30; Admin Dose 40 MG; Start 04/12/17 at 06:00 Salmeterol Xinafoate/ Fluticasone (Advair 500/50 Diskus) 1 inh BID INH Last administered on 04/12/17 08:50; Admin Dose 1 INH; Start 04/11/17 at 21:00 Montelukast Sodium (Singulair) 10 mg HS PO Last administered on 04/11/17 21:54 ; Admin Dose 10 MG; Start 04/11/17 at 21:00 Levothyroxine Sodium (Synthroid) 75 mcg DAILY@06 PO Last administered on 05:29; Admin Dose 75 MCG; Start 04/12/17 at 06:00 Terazosin HCl (Hytrin) 1 mg HS PO ; Start 04/11/17 at 21:00 Diltiazem HCl (Cardizem Cd) 120 mg DAILY PO Last administered on 04/12/17 08: 50; Admin Dose 120 MG; Start 04/12/17 at 09:00 Gabapentin (Neurontin) 800 mg QHS PO Last administered on 04/11/17 21:53; Admin Dose 800 MG; Start 04/11/17 at 21:00 Brimonidine Tartrate (Alphagan 0.2%) 1 drop BID BOTH EYES Last administered on 04/12/17 08:50; Admin Dose 1 DROP; Start 04/11/17 at 21:00 Ciprofloxacin (Cipro) 500 mg Q24H PO Last administered on 04/11/17 18:11; Admin Dose 500 MG; Start 04/11/17 at 18:00 Fluticasone Propionate (Flonase 0.05% Nasal) 1 spray DAILY NASAL Last administered on 04/12/17 08:50; Admin Dose 1 SPRAY; Start 04/12/17 at 09:00 ANASTACIA CHESTER MD Apr 12, 2017 13:45
[2017-04-12] MEDS: CIPROFLOXACIN 500 MG TAB PO SCH (18:01)
[2017-04-12 19:20] VITALS: BP 159/69; RESP 20
[2017-04-12] MEDS: MONTELUKAST 10 MG TAB PO SCH (20:38)
[2017-04-12] MEDS: GABAPENTIN 400 MG CAP PO SCH (20:38)
[2017-04-12] MEDS: TERAZOSIN 1 MG CAP PO SCH (20:38)
[2017-04-13] MEDS: traMADol 50 MG TAB PO SCH ×4 (00:09→17:54)
[2017-04-13] MEDS: LACTATED RINGER'S 1,000 ML IV SCH ×3 (04:25→21:16)
[2017-04-13 05:12] LABS: HEMATOCRIT 31.8 % (37.0-47.0); HEMOGLOBIN 9.7 g/dl (12.0-16.0)
[2017-04-13] MEDS: PANTOPRAZOLE (EC) 40 MG TAB PO SCH (05:26)
[2017-04-13] MEDS: LEVOTHYROXINE 75 MCG TAB PO SCH (05:26)
[2017-04-13 05:50] LABS: CALCIUM 8.4 mg/dl (8.4-10.2); CREATININE 2.05 mg/dl (0.44-1.00); POTASSIUM 4.7 mmol/L (3.5-5.1)
[2017-04-13 07:28] VITALS: BP 143/61; RESP 18
[2017-04-13] MEDS: FLUTICASONE 0.05% 16 GM NAS SPRAY NASAL SCH (08:42)
[2017-04-13] MEDS: SALMETEROL/FLUTICASONE 500/50 INHA INH SCH ×2 (08:42→20:37)
[2017-04-13] MEDS: ASPIRIN (EC) 325 MG TAB PO SCH ×2 (08:43→20:34)
[2017-04-13] MEDS: PREGABALIN 50 MG CAP PO SCH ×2 (08:43→20:35)
[2017-04-13] MEDS: DOCUSATE SODIUM 100 MG CAP PO SCH ×2 (08:43→20:33)
[2017-04-13] MEDS: L ACIDOPHIL/B LACTIS/B LONGUM CAPSULE PO SCH (08:43)
[2017-04-13] MEDS: CELECOXIB 200 MG CAP PO SCH (08:43)
[2017-04-13] MEDS: BRINZOLAMIDE 1% 10ML OPH BOTH EYES SCH ×2 (08:43→20:35)
[2017-04-13] MEDS: BRIMONIDINE 0.2% 5 ML BTL BOTH EYES SCH ×2 (08:43→20:35)
[2017-04-13] MEDS: DILTIAZEM (CD) 120 MG CAP PO SCH (08:46)
--- NOTE | 2017-04-13 09:04 | PN ---
Date/Time of Note Date/Time of Note DATE: 04/13/17 TIME: 09:02 Assessment/Plan VTE Prophylaxis VTE Prophylaxis Intervention: ambulation, SCD's, other (Aspirin 325 mg twice daily) Lines/Catheters IV Catheter Type (from Nrsg): Peripheral IV Lawrence in Place (from Nrsg): Yes Assessment/Plan Assessment/Plan -Incision: Clean, Dry and Intact without any redness or drainage -5/5 Tibialis Anterior, EHL Gastrocnemius/Soleus and Peroneals -Normal Sensation -Palpable DP/PT, Capillary Refill <2 secs -No Distal Edema -Negative Dinesh Sign/No calf pain -Discussed with nurse directly that if patient does not have bowel movement, no transfer to snf facility until defecation has been had. If milk of magnesia is not effective, suppository recommended and nurse aware. -Toes Freely Movable -Continue to await approval/authorization for transfer to snf facility. Subjective 24 Hr Interval Summary 76-year-old female postop day 2 status post left total knee arthroplasty. Patient is up and out of bed with physical therapy. Using front wheeled walker as tolerated. Pain is well controlled. Denies any complaints overnight. There is concern however as patient has not had bowel movement. Milk of magnesia was provided and confirmed after speaking with nurse. Has not had bowel movement in 3 days. Pain Control: well controlled Exam/Review of Systems Vital Signs Vitals Vital Signs Date Time Temp Pulse Resp B/P Pulse Ox O2 Delivery O2 Flow Rate FiO2 04/13/17 07:28 97.6 66 18 143/61 94 04/12/17 03:17 Nasal Cannula 2.0 Intake and Output 04/12/17 04/12/17 04/13/17 15:00 23:00 07:00 Intake Total 775 ml 1420 ml 800 ml Output Total 1700 ml 580 ml Balance 775 ml -280 ml 220 ml Exam Free Text/Dictation -Incision: Clean, Dry and Intact without any redness or drainage -5/5 Tibialis Anterior, EHL Gastrocnemius/Soleus and Peroneals -Normal Sensation -Palpable DP/PT, Capillary Refill <2 secs -No Distal Edema -Negative Dinesh Sign/No calf pain -Toes Freely Movable Constitutional: alert, oriented, well developed Results Result Diagram: 04/13/1743904/13/17439 ALANA RICHMOND PA-C Apr 13, 2017 09:04
--- NOTE | 2017-04-13 11:31 | CONS ---
Date/Time of Note Date/Time of Note DATE: 04/13/17 TIME: 11:18 Assessment/Plan Assessment/Plan Problems: (1) Type 2 diabetes mellitus with diabetic polyneuropathy Status: Chronic Comment: On no meds. FBG levels have been relatively controlled. Not checking FS values. Will monitor. Cont. lyrica and gabapentin. Qualifiers: Diabetes mellitus half-way insulin use: without intermediate manager use Qualified Code: E11.42 - Type 2 diabetes mellitus with diabetic polyneuropathy, without long-term current use of insulin (2) Essential (primary) hypertension Status: Chronic Comment: Mildly elevated. Pt. on diltiazem and terazosin. Will continue. (3) Hyperlipidemia associated with type 2 diabetes mellitus Status: Chronic Comment: Not currently on any therapy. Defer to pt.'s PMD. (4) Acquired hypothyroidism Status: Chronic Comment: Cont. LT4 at current dosage. (5) Moderate persistent asthma Status: Chronic Comment: Cont. advair and rescue inhaler if needed. Qualifiers: Asthma complication type: uncomplicated Qualified Code: J45.40 - Moderate persistent asthma without complication (6) History of gastric ulcer Status: Chronic Comment: Cont. pantoprazole (7) Allergic rhinitis Status: Chronic Comment: Cont. montelukast daily Qualifiers: Allergic rhinitis trigger: other Allergic rhinitis seasonality: non- seasonal Qualified Code: J30.89 - Non-seasonal allergic rhinitis due to other allergic trigger (8) Edema of both legs Status: Chronic Comment: Not edematous currently (9) Chronic kidney disease, stage III (moderate) Status: Chronic Comment: Stable (10) Glaucoma Status: Chronic Comment: On Azopt Qualifiers: Glaucoma type: open-angle (11) Drug-induced constipation Status: Acute Comment: Likely cause of N/V this am. Trial of dulcolax 10 mg suppository x 1. (12) Aftercare following knee joint replacement surgery Status: Acute Comment: Doing well POD#2. May be well enough for d/c to SNF today if able to have BM. Will defer to primary team. Qualifiers: Laterality: left Qualified Code: Z47.1 - Aftercare following left knee joint replacement surgery Consultation Date/Type/Reason Admit Date/Time Apr 11, 2017 at 07:17 Initial Consult Date 04/02/2017 Type of Consultation: Internal medicine Reason for Consultation Medical Management Referring Provider: MARIA DEL ROSARIO CASTELLANO MD 24 HR Interval Summary Constitutional: improved, no complaints Detailed Summary Respiratory: no complaints Cardiovascular: no complaints Gastrointestinal: constipation, decreased appetite, nausea, vomiting (x 1 this am), No passing stool Genitourinary: no complaints Musculoskeletal: bone/joint pain (minimal, feels a little unsteady when she walks) Neurologic: no complaints Exam/Review of Systems Vital Signs Vitals VS - Last 72 Hours, by Label Date Time Temp Pulse Resp B/P Pulse Ox O2 Delivery O2 Flow Rate FiO2 04/13/17 07:28 97.6 66 18 143/61 94 04/12/17 19:20 98.3 59 20 159/69 98 04/12/17 07:23 97.5 60 18 152/68 98 04/12/17 03:17 97.3 64 16 142/60 98 Nasal Cannula 2.0 04/11/17 23:00 98.2 67 16 141/78 98 Nasal Cannula 2.0 04/11/17 21:50 80 16 150/60 99 Nasal Cannula 2.0 04/11/17 21:23 98.1 61 20 160/70 99 04/11/17 21:00 68 16 135/64 99 Nasal Cannula 2.0 04/11/17 20:45 68 16 148/67 98 Nasal Cannula 2.0 04/11/17 20:30 69 16 148/66 99 Nasal Cannula 2.0 04/11/17 20:15 Nasal Cannula 2.0 04/11/17 20:15 98.0 69 16 159/67 98 Nasal Cannula 2.0 04/11/17 20:09 66 16 152/71 99 Nasal Cannula 2.0 04/11/17 19:54 16 155/68 99 Nasal Cannula 2.0 04/11/17 19:39 67 16 150/65 98 Nasal Cannula 2.0 04/11/17 19:24 97.5 70 16 155/64 98 Nasal Cannula 2.0 04/11/17 18:51 97.5 72 16 141/68 98 Nasal Cannula 2.0 04/11/17 18:29 97.9 68 28 140/67 100 Nasal Cannula 2.0 04/11/17 18:21 70 16 145/65 99 Nasal Cannula 2.0 04/11/17 18:16 72 19 147/60 99 Nasal Cannula 2.0 04/11/17 17:46 74 20 138/63 98 Nasal Cannula 2.0 04/11/17 17:16 72 13 128/69 99 Nasal Cannula 2.0 04/11/17 16:46 66 15 131/74 100 Nasal Cannula 2.0 04/11/17 16:16 68 25 127/63 99 Nasal Cannula 2.0 04/11/17 15:46 70 17 139/59 98 Nasal Cannula 2.0 04/11/17 15:16 66 18 141/70 100 Nasal Cannula 2.0 04/11/17 14:46 70 14 154/67 100 Nasal Cannula 2.0 04/11/17 14:16 62 13 147/61 100 Nasal Cannula 2.0 04/11/17 14:01 98.1 64 21 141/76 100 Nasal Cannula 2.0 04/11/17 13:56 64 14 141/55 100 Nasal Cannula 2.0 04/11/17 13:51 64 18 140/49 100 Nasal Cannula 2.0 04/11/17 13:46 64 15 127/62 100 Nasal Cannula 2.0 04/11/17 13:41 68 25 143/71 99 Nasal Cannula 2.0 04/11/17 13:36 66 19 146/70 99 Nasal Cannula 2.0 04/11/17 13:31 66 16 134/68 99 Nasal Cannula 2.0 04/11/17 13:26 66 19 142/64 100 Nasal Cannula 2.0 04/11/17 13:21 66 17 141/59 99 Nasal Cannula 2.0 04/11/17 13:16 68 25 144/57 99 Nasal Cannula 2.0 04/11/17 13:11 74 24 141/62 97 Nasal Cannula 2.0 04/11/17 13:06 74 15 147/62 99 Nasal Cannula 2.0 04/11/17 13:02 98.6 77 14 136/68 100 Nasal Cannula 2.0 04/11/17 13:02 Nasal Cannula 2.0 04/11/17 09:24 98.2 70 16 160/71 94 Vital Signs Date Time Temp Pulse Resp B/P Pulse Ox O2 Delivery O2 Flow Rate FiO2 04/13/17 07:28 97.6 66 18 143/61 94 04/12/17 03:17 Nasal Cannula 2.0 Intake and Output 04/12/17 04/12/17 04/13/17 15:00 23:00 07:00 Intake Total 775 ml 1420 ml 800 ml Output Total 1700 ml 580 ml Balance 775 ml -280 ml 220 ml Exam Constitutional: alert, obese, oriented Psych: nl mood/affect, no complaints Respiratory: clear to auscultation, normal air movement Cardiovascular: nl pulses, regular rate and rhythm, No edema, No murmurs/extra sounds, No rub Gastrointestinal: bowel sounds, distended, nl liver, spleen, non-tender, soft, tender Musculoskeletal: nl extremities to inspection Extremities: normal pulses, No clubbing, No cyanosis, No edema Neurological: NUCLEAR MEDICINE TECH II-XII intact, nl mental status, nl speech, nl strength Results Result Diagram: 04/13/1743904/13/17 044 Results 24 hrs Laboratory Tests Test 04/12/17 17:49 04/13/17 04:40 Bedside Glucose 129 Hemoglobin 9.7 L Hematocrit 31.8 L Sodium Level 131 L Potassium Level 4.7 Chloride Level 100 Carbon Dioxide Level 26 Anion Gap 10 Blood Urea Nitrogen 44 H Creatinine 2.05 H Glucose Level 98 # Calcium Level 8.4 Medications Medications Current Medications Lactated Ringer's (Lr) 1,000 ml @ 125 mls/hr Q8H IV Last administered on 03:14; Admin Dose 125 MLS/HR; Start 04/11/17 at 13:16 Celecoxib (Celebrex) 200 mg DAILY PO Last administered on 04/13/17 08:43; Admin Dose 200 MG; Start 04/12/17 at 09:00 Tramadol HCl (Ultram) 50 mg Q6 PO Last administered on 04/13/17 05:26; Admin Dose 50 MG; Start 04/11/17 at 12:00; Stop 04/14/17 at 11:59 Oxycodone HCl (Roxicodone) 5 mg Q4H PRN PO PAIN LEVEL 1-3; Start 04/11/17 at 13 :30 Oxycodone HCl (Roxicodone) 10 mg Q4H PRN PO PAIN LEVEL 4-7; Start 04/11/17 at 13:30 Hydromorphone HCl (Dilaudid) 1 mg Q3H PRN IV PAIN LEVEL 8-10; Start 04/11/17 at 13:30 Ondansetron HCl (Zofran Inj) 4 mg Q6H PRN IV NAUSEA AND/OR VOMITING Last administered on 04/12/17 21:34; Admin Dose 4 MG; Start 04/11/17 at 13:30 Bisacodyl (Dulcolax Supp) 10 mg Q12H PRN [place] CONSTIPATION; Start 04/11/17 at 13: 30 Magnesium Hydroxide (Milk Of Mag) 30 ml BID PRN PO CONSTIPATION Last administered on 04/13/17 05:34; Admin Dose 30 ML; Start 04/11/17 at 13:30 Sodium Biphosphate/ Sodium Phosphate (Fleet Enema) 133 ml DAILY PRN [place] CONSTIPATION; Start 04/11/17 at 13:30 Docusate Sodium (Colace) 100 mg BID PO Last administered on 04/13/17 08:43; Admin Dose 100 MG; Start 04/11/17 at 21:00 Diphenhydramine HCl (Benadryl) 25 mg Q6H PRN PO PRURITUS; Start 04/11/17 at 13: 30 Aspirin (Ecotrin) 325 mg BID PO Last administered on 04/13/17 08:43; Admin Dose 325 MG; Start 04/12/17 at 09:00 Pregabalin (Lyrica) 50 mg BID PO Last administered on 04/13/17 08:43; Admin Dose 50 MG; Start 04/11/17 at 21:00 Brinzolamide (Azopt) 1 drop BID BOTH EYES Last administered on 04/13/17 08:43; Admin Dose 1 DROP; Start 04/11/17 at 21:00 Lactobacillus Acidophilus (Florajen3 Capsule) 1 each DAILY PO Last administered on 04/13/17 08:43; Admin Dose 1 EACH; Start 04/12/17 at 09:00 Pantoprazole (Protonix Tab) 40 mg DAILY@06 PO Last administered on 04/13/17 05: 26; Admin Dose 40 MG; Start 04/12/17 at 06:00 Salmeterol Xinafoate/ Fluticasone (Advair 500/50 Diskus) 1 inh BID INH Last administered on 04/13/17 08:42; Admin Dose 1 INH; Start 04/11/17 at 21:00 Montelukast Sodium (Singulair) 10 mg HS PO Last administered on 04/12/17 20:38 ; Admin Dose 10 MG; Start 04/11/17 at 21:00 Levothyroxine Sodium (Synthroid) 75 mcg DAILY@06 PO Last administered on 05:26; Admin Dose 75 MCG; Start 04/12/17 at 06:00 Terazosin HCl (Hytrin) 1 mg HS PO Last administered on 04/12/17 20:38; Admin Dose 1 MG; Start 04/11/17 at 21:00 Diltiazem HCl (Cardizem Cd) 120 mg DAILY PO Last administered on 04/13/17 08:46 ; Admin Dose 120 MG; Start 04/12/17 at 09:00 Gabapentin (Neurontin) 800 mg QHS PO Last administered on 04/12/17 20:38; Admin Dose 800 MG; Start 04/11/17 at 21:00 Brimonidine Tartrate (Alphagan 0.2%) 1 drop BID BOTH EYES Last administered on 04/13/17 08:43; Admin Dose 1 DROP; Start 04/11/17 at 21:00 Ciprofloxacin (Cipro) 500 mg Q24H PO Last administered on 04/12/17 18:01; Admin Dose 500 MG; Start 04/11/17 at 18:00 Fluticasone Propionate (Flonase 0.05% Nasal) 1 spray DAILY NASAL Last administered on 04/13/17 08:42; Admin Dose 1 SPRAY; Start 04/12/17 at 09:00 DAVID MTZ MD Apr 13, 2017 11:29
[2017-04-13] MEDS: CIPROFLOXACIN 500 MG TAB PO SCH (17:54)
[2017-04-13 19:35] VITALS: BP 158/63; RESP 18
[2017-04-13] MEDS: GABAPENTIN 400 MG CAP PO SCH (20:34)
[2017-04-13] MEDS: MONTELUKAST 10 MG TAB PO SCH (20:35)
[2017-04-13] MEDS: TERAZOSIN 1 MG CAP PO SCH (20:35)
[2017-04-14] MEDS: traMADol 50 MG TAB PO SCH ×2 (00:20→05:45)
[2017-04-14] MEDS: LACTATED RINGER'S 1,000 ML IV SCH ×2 (05:08→13:16)
[2017-04-14 05:12] LABS: HEMATOCRIT 30.8 % (37.0-47.0); HEMOGLOBIN 9.2 g/dl (12.0-16.0)
[2017-04-14 05:32] LABS: CALCIUM 8.3 mg/dl (8.4-10.2); CREATININE 1.91 mg/dl (0.44-1.00); POTASSIUM 5.9 mmol/L (3.5-5.1)
[2017-04-14] MEDS: LEVOTHYROXINE 75 MCG TAB PO SCH (05:45)
[2017-04-14] MEDS: PANTOPRAZOLE (EC) 40 MG TAB PO SCH (05:45)
[2017-04-14 07:18] VITALS: BP 153/67; RESP 20
--- NOTE | 2017-04-14 07:45 | PDOCDIS ---
Discharge Instructions DIAGNOSIS Discharge Diagnosis Status post left total knee arthroplasty CONDITION Patient Condition: Stable HOME CARE INSTRUCTIONS: Diet Instructions: RegularSpecial Diet: CLEAR LIQUID ACTIVITY: Activity Restrictions: Slowly Increase Activity Rest between Activity Avoid heavy lifting No Sexual Activity Do not Drive Do not operate Machinery Do not operate Power Tool Avoid Heavy Housework Keep Limb Elevated (And use ice modalities.) Weight Bearing (As tolerated with front wheeled walker) Bathing Restrictions: Shower (Using Tegaderm with pad. Apply prior to shower. May remove after shower. Repeat the steps each days until juan luis are removed around 10 days postoperatively) FOLLOW UP/APPOINTMENTS Follow-up Plan With Dr. Rogers at 10 days postop. ALANA RICHMOND PA-C Apr 14, 2017 07:45
--- NOTE | 2017-04-14 07:50 | PN ---
Date/Time of Note Date/Time of Note DATE: 04/14/17 TIME: 07:48 Assessment/Plan VTE Prophylaxis VTE Prophylaxis Intervention: ambulation, SCD's, other (Aspirin 325 mg twice daily) Lines/Catheters IV Catheter Type (from Nrs): Saline Lock [place] in Place (from Nrsg): Yes Assessment/Plan Assessment/Plan -Dress change performed today -ASA for DVT Prophylaxis x 6 weeks outpatient discussed. -Continue monitoring as outpatient on discharge -Follow-up at scheduled postop outpatient appointment or sooner if there is any issue. -Tegaderm dressings given with specific instructions to use as outpatient to keep wound dry until juan luis are moved around 10 days. -Patient Stable -Discharge to [facility] Subjective 24 Hr Interval Summary 76-year-old female postop day 3 left total knee replacement. Denies any pain complaints today. Up and walking with physical therapy. Denies any chest pain/ tightness. No calf pain. Continues to do well. Authorization from [place] [facility] [place] [facility] has been achieved per case management note on 04/13/2017. Patient will be transferred today. Constitutional: no complaints Exam/Review of Systems Vital Signs Vitals Vital Signs Date Time Temp Pulse Resp B/P Pulse Ox O2 Delivery O2 Flow Rate FiO2 04/14/17 07:18 97.8 87 20 153/67 90 04/12/17 03:17 Nasal Cannula 2.0 Intake and Output 04/13/17 04/13/17 04/14/17 15:00 23:00 07:00 Intake Total 1220 ml 480 ml Output Total 800 ml Balance 420 ml 480 ml Exam Free Text/Dictation -Incision: Clean, Dry and Intact without any redness or drainage -5/5 Tibialis Anterior, EHL Gastrocnemius/Soleus and Peroneals -Normal Sensation -Palpable DP/PT, Capillary Refill <2 secs -No Distal Edema -Negative Dinesh Sign/No calf pain -Toes Freely Movable Results Result Diagram: 04/14/17 0430 04/14/17429 ALANA RICHMOND PA-C Apr 14, 2017 07:50
[2017-04-14] MEDS: PREGABALIN 50 MG CAP PO SCH (08:42)
[2017-04-14] MEDS: DOCUSATE SODIUM 100 MG CAP PO SCH (08:42)
[2017-04-14] MEDS: CELECOXIB 200 MG CAP PO SCH (08:42)
[2017-04-14] MEDS: ASPIRIN (EC) 325 MG TAB PO SCH (08:42)
[2017-04-14] MEDS: FLUTICASONE 0.05% 16 GM NAS SPRAY NASAL SCH (08:43)
[2017-04-14] MEDS: SALMETEROL/FLUTICASONE 500/50 INHA INH SCH (08:43)
[2017-04-14] MEDS: BRINZOLAMIDE 1% 10ML OPH BOTH EYES SCH (08:43)
[2017-04-14] MEDS: DILTIAZEM (CD) 120 MG CAP PO SCH (08:43)
[2017-04-14] MEDS: BRIMONIDINE 0.2% 5 ML BTL BOTH EYES SCH (08:43)
[2017-04-14] MEDS ORDERED: NA POLYST SULFON 15 GM/60 ML BTL PO ONE (10:30)
[2017-04-14] MEDS: L ACIDOPHIL/B LACTIS/B LONGUM CAPSULE PO SCH (10:53)
--- NOTE | 2017-04-14 11:23 | CONS ---
Date/Time of Note Date/Time of Note DATE: 04/14/17 TIME: 11:18 Assessment/Plan Assessment/Plan Problems: (1) Hyperkalemia Status: Acute Comment: Kayexelate x 1 now. Recheck BMP this afternoon. If K does not decrease to normal range, hold d/c. (2) Chronic kidney disease, stage III (moderate) Status: Chronic Comment: Change to renal diet (3) Drug-induced constipation Status: Resolved Comment: Pt. had BM this am (4) Acquired hypothyroidism Status: Chronic Comment: Cont. LT4 daily (5) Moderate persistent asthma Status: Chronic Comment: On steroid inhaler and rescue inhaler prn Qualifiers: Asthma complication type: uncomplicated Qualified Code: J45.40 - Moderate persistent asthma without complication (6) Type 2 diabetes mellitus with diabetic polyneuropathy Status: Chronic Comment: On no meds. FBG in goal range Qualifiers: Diabetes mellitus fdc insulin use: without fdc use Qualified Code: E11.42 - Type 2 diabetes mellitus with diabetic polyneuropathy, without long-term current use of insulin (7) Essential (primary) hypertension Status: Chronic Comment: BP elevated. Defer to primary MD to treat (8) Hyperlipidemia associated with type 2 diabetes mellitus Status: Chronic Comment: On no statin. Defer to primary MD to treat (9) Glaucoma Status: Chronic Comment: On azopt. Qualifiers: Glaucoma type: open-angle (10) Aftercare following knee joint replacement surgery Status: Acute Comment: Doing well POD#3. Ready for d/c except for hyperkalemia. Will ok d/ c to SNF if potassium normalizes. Qualifiers: Laterality: left Qualified Code: Z47.1 - Aftercare following left knee joint replacement surgery Consultation Date/Type/Reason Admit Date/Time Apr 11, 2017 at 07:17 Initial Consult Date 04/02/2017 Type of Consultation: Internal medicine Reason for Consultation Medical management Referring Provider: MARIA DEL ROSARIO CASTELLANO MD 24 HR Interval Summary Constitutional: improved, no complaints Detailed Summary Respiratory: no complaints Cardiovascular: no complaints Gastrointestinal: no complaints, passing stool, No constipation (had BM this am) Genitourinary: no complaints Musculoskeletal: no complaints Neurologic: no complaints Exam/Review of Systems Vital Signs Vitals VS - Last 72 Hours, by Label Date Time Temp Pulse Resp B/P Pulse Ox O2 Delivery O2 Flow Rate FiO2 04/14/17 07:18 97.8 87 20 153/67 90 04/13/17 19:35 97.5 62 18 158/63 93 04/13/17 07:28 97.6 66 18 143/61 94 04/12/17 19:20 98.3 59 20 159/69 98 04/12/17 07:23 97.5 60 18 152/68 98 04/12/17 03:17 97.3 64 16 142/60 98 Nasal Cannula 2.0 04/11/17 23:00 98.2 67 16 141/78 98 Nasal Cannula 2.0 04/11/17 21:50 80 16 150/60 99 Nasal Cannula 2.0 04/11/17 21:23 98.1 61 20 160/70 99 04/11/17 21:00 68 16 135/64 99 Nasal Cannula 2.0 04/11/17 20:45 68 16 148/67 98 Nasal Cannula 2.0 04/11/17 20:30 69 16 148/66 99 Nasal Cannula 2.0 04/11/17 20:15 Nasal Cannula 2.0 04/11/17 20:15 98.0 69 16 159/67 98 Nasal Cannula 2.0 04/11/17 20:09 66 16 152/71 99 Nasal Cannula 2.0 04/11/17 19:54 16 155/68 99 Nasal Cannula 2.0 04/11/17 19:39 67 16 150/65 98 Nasal Cannula 2.0 04/11/17 19:24 97.5 70 16 155/64 98 Nasal Cannula 2.0 04/11/17 18:51 97.5 72 16 141/68 98 Nasal Cannula 2.0 04/11/17 18:29 97.9 68 28 140/67 100 Nasal Cannula 2.0 04/11/17 18:21 70 16 145/65 99 Nasal Cannula 2.0 04/11/17 18:16 72 19 147/60 99 Nasal Cannula 2.0 04/11/17 17:46 74 20 138/63 98 Nasal Cannula 2.0 04/11/17 17:16 72 13 128/69 99 Nasal Cannula 2.0 04/11/17 16:46 66 15 131/74 100 Nasal Cannula 2.0 04/11/17 16:16 68 25 127/63 99 Nasal Cannula 2.0 04/11/17 15:46 70 17 139/59 98 Nasal Cannula 2.0 04/11/17 15:16 66 18 141/70 100 Nasal Cannula 2.0 04/11/17 14:46 70 14 154/67 100 Nasal Cannula 2.0 04/11/17 14:16 62 13 147/61 100 Nasal Cannula 2.0 04/11/17 14:01 98.1 64 21 141/76 100 Nasal Cannula 2.0 04/11/17 13:56 64 14 141/55 100 Nasal Cannula 2.0 04/11/17 13:51 64 18 140/49 100 Nasal Cannula 2.0 04/11/17 13:46 64 15 127/62 100 Nasal Cannula 2.0 04/11/17 13:41 68 25 143/71 99 Nasal Cannula 2.0 04/11/17 13:36 66 19 146/70 99 Nasal Cannula 2.0 04/11/17 13:31 66 16 134/68 99 Nasal Cannula 2.0 04/11/17 13:26 66 19 142/64 100 Nasal Cannula 2.0 04/11/17 13:21 66 17 141/59 99 Nasal Cannula 2.0 04/11/17 13:16 68 25 144/57 99 Nasal Cannula 2.0 04/11/17 13:11 74 24 141/62 97 Nasal Cannula 2.0 04/11/17 13:06 74 15 147/62 99 Nasal Cannula 2.0 04/11/17 13:02 98.6 77 14 136/68 100 Nasal Cannula 2.0 04/11/17 13:02 Nasal Cannula 2.0 Vital Signs Date Time Temp Pulse Resp B/P Pulse Ox O2 Delivery O2 Flow Rate FiO2 04/14/17 07:18 97.8 87 20 153/67 90 04/12/17 03:17 Nasal Cannula 2.0 Intake and Output 04/13/17 04/13/17 04/14/17 15:00 23:00 07:00 Intake Total 1220 ml 480 ml Output Total 800 ml Balance 420 ml 480 ml Exam Constitutional: alert, obese, oriented Psych: nl mood/affect, no complaints Respiratory: clear to auscultation, normal air movement Cardiovascular: nl pulses, regular rate and rhythm, No edema, No murmurs/extra sounds, No rub Gastrointestinal: bowel sounds, nl liver, spleen, non-tender, soft, No mass, No rebound or guarding Musculoskeletal: nl extremities to inspection Extremities: normal pulses, No clubbing, No cyanosis, No edema Neurological: BIOMEDICAL MANAGER II-XII intact, nl mental status, nl speech, nl strength Results Result Diagram: 04/14/1742904/14/17429 Results 24 hrs Laboratory Tests Test 04/14/17 04:30 Hemoglobin 9.2 L Hematocrit 30.8 L Sodium Level 132 L Potassium Level 5.9 H Chloride Level 97 Carbon Dioxide Level 25 Anion Gap 16 Blood Urea Nitrogen 47 H Creatinine 1.91 H Glucose Level 83 Calcium Level 8.3 L Medications Medications Current Medications Lactated Ringer's (Lr) 1,000 ml @ 125 mls/hr Q8H IV Last administered on 03:14; Admin Dose 125 MLS/HR; Start 04/11/17 at 13:16 Celecoxib (Celebrex) 200 mg DAILY PO Last administered on 04/14/17 08:42; Admin Dose 200 MG; Start 04/12/17 at 09:00 Tramadol HCl (Ultram) 50 mg Q6 PO Last administered on 04/14/17 05:45; Admin Dose 50 MG; Start 04/11/17 at 12:00; Stop 04/14/17 at 11:59 Oxycodone HCl (Roxicodone) 5 mg Q4H PRN PO PAIN LEVEL 1-3; Start 04/11/17 at 13 :30 Oxycodone HCl (Roxicodone) 10 mg Q4H PRN PO PAIN LEVEL 4-7; Start 04/11/17 at 13:30 Hydromorphone HCl (Dilaudid) 1 mg Q3H PRN IV PAIN LEVEL 8-10; Start 04/11/17 at 13:30 Ondansetron HCl (Zofran Inj) 4 mg Q6H PRN IV NAUSEA AND/OR VOMITING Last administered on 04/12/17 21:34; Admin Dose 4 MG; Start 04/11/17 at 13:30 Bisacodyl (Dulcolax Supp) 10 mg Q12H PRN [place] CONSTIPATION Last administered on 12:49; Admin Dose 10 MG; Start 04/11/17 at 13:30 Magnesium Hydroxide (Milk Of Mag) 30 ml BID PRN PO CONSTIPATION Last administered on 04/13/17 05:34; Admin Dose 30 ML; Start 04/11/17 at 13:30 Sodium Biphosphate/ Sodium Phosphate (Fleet Enema) 133 ml DAILY PRN [place] CONSTIPATION; Start 04/11/17 at 13:30 Docusate Sodium (Colace) 100 mg BID PO Last administered on 04/14/17 08:42; Admin Dose 100 MG; Start 04/11/17 at 21:00 Diphenhydramine HCl (Benadryl) 25 mg Q6H PRN PO PRURITUS; Start 04/11/17 at 13: 30 Aspirin (Ecotrin) 325 mg BID PO Last administered on 04/14/17 08:42; Admin Dose 325 MG; Start 04/12/17 at 09:00 Pregabalin (Lyrica) 50 mg BID PO Last administered on 04/14/17 08:42; Admin Dose 50 MG; Start 04/11/17 at 21:00 Brinzolamide (Azopt) 1 drop BID BOTH EYES Last administered on 04/14/17 08:43; Admin Dose 1 DROP; Start 04/11/17 at 21:00 Lactobacillus Acidophilus (Florajen3 Capsule) 1 each DAILY PO Last administered on 04/14/17 10:53; Admin Dose 1 EACH; Start 04/12/17 at 09:00 Pantoprazole (Protonix Tab) 40 mg DAILY@06 PO Last administered on 04/14/17 05: 45; Admin Dose 40 MG; Start 04/12/17 at 06:00 Salmeterol Xinafoate/ Fluticasone (Advair 500/50 Diskus) 1 inh BID INH Last administered on 04/14/17 08:43; Admin Dose 1 INH; Start 04/11/17 at 21:00 Montelukast Sodium (Singulair) 10 mg HS PO Last administered on 04/13/17 20:35 ; Admin Dose 10 MG; Start 04/11/17 at 21:00 Levothyroxine Sodium (Synthroid) 75 mcg DAILY@06 PO Last administered on 05:45; Admin Dose 75 MCG; Start 04/12/17 at 06:00 Terazosin HCl (Hytrin) 1 mg HS PO Last administered on 04/13/17 20:35; Admin Dose 1 MG; Start 04/11/17 at 21:00 Diltiazem HCl (Cardizem Cd) 120 mg DAILY PO Last administered on 04/14/17 08:43 ; Admin Dose 120 MG; Start 04/12/17 at 09:00 Gabapentin (Neurontin) 800 mg QHS PO Last administered on 04/13/17 20:34; Admin Dose 800 MG; Start 04/11/17 at 21:00 Brimonidine Tartrate (Alphagan 0.2%) 1 drop BID BOTH EYES Last administered on 04/14/17 08:43; Admin Dose 1 DROP; Start 04/11/17 at 21:00 Ciprofloxacin (Cipro) 500 mg Q24H PO Last administered on 04/13/17 17:54; Admin Dose 500 MG; Start 04/11/17 at 18:00 Fluticasone Propionate (Flonase 0.05% Nasal) 1 spray DAILY NASAL Last administered on 04/14/17 08:43; Admin Dose 1 SPRAY; Start 04/12/17 at 09:00 DAVID MTZ MD Apr 14, 2017 11:23
[2017-04-14 15:44] LABS: CALCIUM 8.1 mg/dl (8.4-10.2); CREATININE 2.09 mg/dl (0.44-1.00)
[2017-04-14] MEDS: CIPROFLOXACIN 500 MG TAB PO SCH (17:40)
== END 2017-04-14 20:15 | DRG 470 ==
LOC: REC 07:17 → MS1 18:40
PROVIDERS: ADMIT Orthopaedic Surgery; ATTEND Orthopaedic Surgery
PROC: 0SRD0J9 Replacement of Left Knee Joint with Synthetic Substitute, Cemented, Open Approach (ICD-10-PCS; principal; 2017-04-11 10:00)
DX: M17.12 Unilateral primary osteoarthritis, left knee (principal); E11.42 Type 2 diabetes mellitus with diabetic polyneuropathy; I13.10 Hypertensive heart and chronic kidney disease without heart failure, with stage 1 through stage 4 chronic kidney disease, or unspecified chronic kidney disease; E11.69 Type 2 diabetes mellitus with other specified complication; J44.9 Chronic obstructive pulmonary disease, unspecified; E03.9 Hypothyroidism, unspecified; E78.5 Hyperlipidemia, unspecified; J45.40 Moderate persistent asthma, uncomplicated; E53.8 Deficiency of other specified B group vitamins; K59.03 Drug induced constipation; N18.3 Chronic kidney disease, stage 3 (moderate); H40.9 Unspecified glaucoma; Z96.651 Presence of right artificial knee joint; Z79.84 Long term (current) use of oral hypoglycemic drugs
CPT/HCPCS: 73560; 80048; 81003; 82962; 85014; 85018; 87081; 87086; 88304; 88311; 97110; 97116; 97162; 97167; 97530; C1776; J0131; J0690; J1100; J1644; J2250; J2405; J2710; J3010; J3370; J3420; J7120

== ENCOUNTER → 2017-04-22 | Outpatient (CLI) | payer MEDICARE, BC ==
[~2017-04-22] MED LIST changes: +ADV25050 INHALATION; +AZEL23SP NASAL; +BRIN8DRO BOTH EYES; +CHOL100062 PO; -CHOL10009; +CIPR500T4 PO; +DILT120C77 PO; -ESOM40CA; +ESOM40CA PO; -FENO200C8; -FISH1200; -FLUT1DIS23; +FURO40TA4 PO; -GABA-528; +GABA-528 PO; +HC20CR25 TOP; +LACT1CAP56 PO; -LATA2.5D2 BOTH EYES; +LEVO75TA5 PO; +LOTE5DRO3 BOTH EYES; +METF500T3 PO; +MONT10TA24 PO; -SIMV-39; -SYN75; -TERA1CAP36 PO; +VIT1TABL33 PO; -[UNRECOGNIZED DRUG - CODE]
== END | disposition home or self-care (01) ==
LOC: HKI 09:37
PROVIDERS: ATTEND Orthopaedic Surgery
DX: Z47.1 Aftercare following joint replacement surgery (principal); Z96.652 Presence of left artificial knee joint

== ENCOUNTER → 2017-05-20 | Outpatient (CLI) | payer MEDICARE, BC | END | disposition home or self-care (01) | LOC: HKI 13:46 | PROVIDERS: ATTEND Orthopaedic Surgery | DX: Z09 Encounter for follow-up examination after completed treatment for conditions other than malignant neoplasm (principal); Z96.652 Presence of left artificial knee joint ==

== ENCOUNTER 2018-03-02 21:14 | Inpatient (IN) | END 2018-03-07 17:36 | DRG 641 ==

== ENCOUNTER 2018-04-12 15:16 | Emergency (ER) | END 2018-04-12 19:08 | disposition home or self-care (01) ==

== ENCOUNTER 2018-06-02 19:32 | Emergency (ER) | END 2018-06-02 22:35 | disposition home or self-care (01) ==

== ENCOUNTER 2018-10-25 13:14 | Emergency (ER) | payer BC, MEDICARE ==
[~2018-10-25] VITALS: Wt 70.0 kg
[~2018-10-25 13:14] MED LIST changes: -AZEL23SP NASAL; +CELE100C PO; -CIPR500T4 PO; -ESOM40CA PO; +FAMO20TA18 PO; -FURO40TA4 PO; -HC20CR25 TOP; -LACT1CAP56 PO; +LACTINEX PO; -LOTE5DRO3 BOTH EYES; +MONT10TA21 PO; -MONT10TA24 PO; +TERA2CAP3 PO; +VIT1CAPS10 PO; -VIT1TABL33 PO
[2018-10-25] MEDS ORDERED: SOD CHLORIDE 0.9% 1,000 ML IV STA (13:59)
--- NOTE | 2018-10-25 14:24 | ERD ---
ER Documentation Chief Complaint Chief Complaint AP WITH DIARRHEA X 2 DAYS HPI 78-year-old female presenting with complaints of diarrhea for the past 2 days with generalized weakness. She did have some mild abdominal cramping that has been intermittent. She denies any fever, chills, nausea, vomiting. No chest pain or shortness of breath. No recent travel or antibiotics. ROS All systems reviewed and are negative except as per history of present illness. Medications Home Meds Active Scripts Loperamide Hcl* (Imodium*) 2 Mg Capsule, 2 MG PO .AFTER EA LOOSE BM PRN for BHARATI DOE, #10 TAB Prov:MORE MERLOS MD 10/25/18 Reported Medications Celecoxib* (Celebrex*) 100 Mg Capsule, 100 MG PO BID, CAP PER PT HOLD MEDICATION TEMPORARY 06/02/18 Metformin* (Glucophage* XR) 500 Mg Tab.sr.24h, 250 MG PO DAILY, #30 TAB 04/12/18 Vit A/Vit C/Vit E/Zinc/Copper (Preservision Areds Softgel) 1 Each Capsule, 1 EACH PO BID, CAP 04/12/18 Terazosin Hcl* (Terazosin Hcl*) 2 Mg Capsule, 2 MG PO HS, CAP 04/12/18 Salmeterol Xinaf/Fluticasone* (Advair*) 250-50 Diskus Inhaler, 1 INH INHALATION BID, #1 INHALER 04/12/18 Brinzolamide-Brimonidine (Simbrinza 1%-0.2% Oph) 1%-0.2% - 8 Ml Drops.susp, 1 DROP BOTH EYES BID, EA 04/12/18 Montelukast Sodium* (Singulair*) 10 Mg Tablet, 10 MG PO QHS, #30 TAB 04/12/18 Levothyroxine Sodium* (Levothyroxine Sodium*) 75 Mcg Tablet, 75 MCG PO BEFORE BREAKFAST, #30 TAB 04/12/18 Lactobacillus Acidophilus* (Lactinex*) 1 Tab Chew, 1 TAB PO BID, TAB 04/12/18 Gabapentin* (Gabapentin*) 800 Mg Tablet, 800 MG PO QHS, #90 TAB 04/12/18 Famotidine* (Famotidine*) 20 Mg Tablet, 20 MG PO Q12H, #60 TAB 04/12/18 Diltiazem Hcl* (Cardizem CD*) 120 Mg Cap.sr.24h, 120 MG PO DAILY, #30 CAP HOLD IF SBP<110 04/12/18 Cholecalciferol* (Vitamin D3*) 1,000 Unit Tablet, 1000 UNIT PO DAILY, TAB 04/12/18 Allergies Allergies: Coded Allergies: amoxicillin (Verified Allergy, Unknown, 10/25/18) PMhx/Soc History of Surgery: Yes (BILT KNEE SX, GALL BLADDER REMVAL, CATRACT SX) Anesthesia Reaction: No Hx Neurological Disorder: Yes (NEUROPATHY) Hx Respiratory Disorders: Yes (ASTHMA) Hx Cardiac Disorders: Yes (HTN, HYPERLIPIDEMIA) Hx Psychiatric Problems: No Hx Miscellaneous Medical Probl: Yes (see PT note) Hx Alcohol Use: Yes (OCCASIONALLY) Hx Substance Use: No Hx Tobacco Use: No FmHx Family History: No diabetes Physical Exam Vitals Vital Signs Date Temp Pulse Resp B/P (MAP) Pulse Ox O2 O2 Flow FiO2 Time Delivery Rate 10/25/18 98.2 14:30 10/25/18 89 18 187/92 99 13:17 (123) Physical Exam Const: No acute distress Head: Atraumatic Eyes: Normal Conjunctiva ENT: Normal External Ears, Nose and Mouth. Neck: Full range of motion. No meningismus. Resp: Clear to auscultation bilaterally Cardio: Regular rate and rhythm, no murmurs Abd: Soft, minimal right sided tenderness, no rebound or guarding, non distended. No McBurney's point tenderness. Normal bowel sounds Skin: No petechiae or rashes Back: No midline or flank tenderness Ext: No cyanosis, or edema Neur: Awake and alert Psych: Normal Mood and Affect Result Diagram: 10/25/18 1420 10/25/18 1420 Results 24 hrs Laboratory Tests Test 10/25/18 14:20 White Blood Count 7.3 10^3/ul Red Blood Count 4.45 10^6/ul Hemoglobin 10.4 g/dl Hematocrit 35.5 % Mean Corpuscular Volume 79.8 fl Mean Corpuscular Hemoglobin 23.4 pg Mean Corpuscular Hemoglobin Concent 29.3 g/dl Red Cell Distribution Width 16.7 % Platelet Count 158 10^3/UL Mean Platelet Volume 8.8 fl Immature Granulocytes % 0.400 % Neutrophils % 75.4 % Lymphocytes % 16.4 % Monocytes % 6.6 % Eosinophils % 0.6 % Basophils % 0.6 % Nucleated Red Blood Cells % 0.0 /100WBC Immature Granulocytes # 0.030 10^3/ul Neutrophils # 5.5 10^3/ul Lymphocytes # 1.2 10^3/ul Monocytes # 0.5 10^3/ul Eosinophils # 0.0 10^3/ul Basophils # 0.0 10^3/ul Nucleated Red Blood Cells # 0.0 10^3/ul Sodium Level 144 mmol/L Potassium Level 4.5 mmol/L Chloride Level 107 mmol/L Carbon Dioxide Level 22 mmol/L Anion Gap 15 Blood Urea Nitrogen 40 mg/dl Creatinine 1.80 mg/dl Est Glomerular Filtrat Rate mL/min mL/min Glucose Level 101 mg/dl Calcium Level 9.1 mg/dl Total Bilirubin 0.2 mg/dl Direct Bilirubin 0.00 mg/dl Indirect Bilirubin 0.2 mg/dl Aspartate Amino Transf (AST/SGOT) 22 IU/L Alanine Aminotransferase (ALT/SGPT) 11 IU/L Alkaline Phosphatase 135 IU/L Total Protein 8.3 g/dl Albumin 4.1 g/dl Globulin 4.20 g/dl Albumin/Globulin Ratio 0.97 Lipase 97 U/L Current Medications Medications Dose Sig/Sindi Start Time Status Last (Trade) Ordered Route PRN Stop Time Admin Dose Reason Admin Sodium 1,000 ml @ Q1H STAT 10/25/18 DC 10/25/18 Chloride 1,000 mls/hr IV 13:59 14:25 10/25/18 14:58 Loperamide 2 mg ONCE ONCE 10/25/18 DC 10/25/18 HCl PO 15:30 15:24 (Imodium Cap) 10/25/18 15:31 Procedures/MDM EMERGENT LABS AND DIAGNOSTIC STUDIES: Lab Results above were reviewed and interpreted by me. CBC: Mild anemia. No evidence of infection CMP: Elevation of BUN and creatinine compared to baseline, c/w SHERRI. Baseline creatinine is 1.4. No evidence of electrolyte abnormality, hypoglycemia, liver failure, or biliary obstruction Lipase: no evidence of pancreatitis Initial Nursing notes reviewed. Previous Medical Records requested via the Electronic Health Record. EMERGENCY DEPARTMENT COURSE / MEDICAL DECISION MAKING: Patient is presenting with diarrhea and evidence of mild dehydration on her labs with an elevated creatinine from baseline. Patient was given IV fluids and Imodium while here. I have a low suspicion for acute surgical abdomen. She would likely has colitis, likely viral in etiology. I doubt bacterial colitis. Patient feels much better after IV fluids. She really wants to go home and does not want admission. I feel if she hydrates well at home and takes the Imodium that I am prescribing her, she will likely be fine. I recommended follow-up with her primary care doctor, Dr. Vernon, in 2 days. If any of her symptoms worsen by tomorrow, she was encouraged to return to the ER immediately. Patient's blood pressure was elevated (>120/80) but appears stable without evidence of hypertensive emergency or urgency. The patient was counseled about the risks of hypertension and urged to pursue outpatient monitoring and therapy within a week with their primary care physician. Departure Diagnosis: Primary Impression: Diarrhea Diarrhea type: presumed infectious Qualified Codes: R19.7 - Diarrhea, unspecified Additional Impressions: Abdominal cramps Acute on chronic renal insufficiency Dehydration Condition: Stable MORE MERLOS MD Oct 25, 2018 14:24
[2018-10-25] MEDS ORDERED: LOPE2CAP PO (15:26)
[2018-10-25] MEDS ORDERED: LOPERAMIDE 2 MG CAP PO ONE (15:30)
== END 2018-10-25 15:56 | disposition home or self-care (01) ==
LOC: E/R 13:14
DX: R19.7 Diarrhea, unspecified (principal); N18.9 Chronic kidney disease, unspecified; E86.0 Dehydration; R10.84 Generalized abdominal pain; J45.909 Unspecified asthma, uncomplicated; I12.9 Hypertensive chronic kidney disease with stage 1 through stage 4 chronic kidney disease, or unspecified chronic kidney disease
CPT/HCPCS: 36415; 80053; 83690; 85025; 99284; J7030

== ENCOUNTER 2019-02-05 21:29 | Emergency (ER) | payer BC ==
[~2019-02-05] VITALS: Wt 54.5 kg
[~2019-02-05 21:29] MED LIST changes: +LOPE2CAP PO
--- NOTE | 2019-02-05 23:22 | ERD ---
ER Documentation Chief Complaint Chief Complaint SOB X'S 1 DAY. PT STATES SHE HAS MISSED SINGULAIR MEDS FOR 2 DAYS HPI 78-year-old female with a history of hypertension, asthma and CKD brought in by a friend for shortness of breath that has been going on for for the past 2 months but progressively worsening within the last few days. Today she had difficulty with breathing while ambulating a short distance to her bathroom. Per her friend, she could not wait for her to arrive so patient called ambulance as she was really feeling unwell. However when friend arrived, she brought her to the ER. Patient is denying any associated chest pain. Patient's friend thinks that she has not been using her asthma medications appropriately. No dizziness or near syncopal episodes at home. No fevers or chills. No cough or hemoptysis.. ROS All systems reviewed and are negative except as per history of present illness. Medications Home Meds Active Scripts Loperamide Hcl* (Imodium*) 2 Mg Capsule, 2 MG PO .AFTER EA LOOSE BM PRN for DIARRHEA, #10 TAB Prov:MORE QUIROZ MD 10/25/18 Reported Medications Bromfenac Sodium (Prolensa) 3 Ml Drops, 1 DROP OP DAILY, BOTTLE 1 drop Left eye daily 02/06/19 Furosemide* (Furosemide*) 40 Mg Tablet, 20 MG PO DAILY for 30 Days take one half tab by mouth daily 02/06/19 Celecoxib* (Celebrex*) 100 Mg Capsule, 100 MG PO BID, CAP PER PT HOLD MEDICATION TEMPORARY 06/02/18 Metformin* (Glucophage* XR) 500 Mg Tab.sr.24h, 250 MG PO DAILY, #30 TAB 04/12/18 Vit A/Vit C/Vit E/Zinc/Copper (Preservision Areds Softgel) 1 Each Capsule, 1 EACH PO BID, CAP 04/12/18 Terazosin Hcl* (Terazosin Hcl*) 2 Mg Capsule, 2 MG PO HS, CAP 04/12/18 Salmeterol Xinaf/Fluticasone* (Advair*) 250-50 Diskus Inhaler, 1 INH INHALATION BID, #1 INHALER 04/12/18 Brinzolamide-Brimonidine (Simbrinza 1%-0.2% Oph) 1%-0.2% - 8 Ml Drops.susp, 1 DROP BOTH EYES BID, EA 04/12/18 Montelukast Sodium* (Singulair*) 10 Mg Tablet, 10 MG PO QHS, #30 TAB 04/12/18 Levothyroxine Sodium* (Levothyroxine Sodium*) 75 Mcg Tablet, 75 MCG PO BEFORE BREAKFAST, #30 TAB 04/12/18 Lactobacillus Acidophilus* (Lactinex*) 1 Tab Chew, 1 TAB PO DAILY, TAB 04/12/18 Gabapentin* (Gabapentin*) 800 Mg Tablet, 800 MG PO QHS, #90 TAB 04/12/18 Famotidine* (Famotidine*) 20 Mg Tablet, 20 MG PO Q12H, #60 TAB 04/12/18 Diltiazem Hcl* (Cardizem CD*) 120 Mg Cap.sr.24h, 120 MG PO DAILY, #30 CAP HOLD IF SBP<110 04/12/18 Cholecalciferol* (Vitamin D3*) 1,000 Unit Tablet, 1000 UNIT PO DAILY, TAB 04/12/18 Allergies Allergies: Coded Allergies: amoxicillin (Unverified Allergy, Unknown, 02/06/19) PMhx/Soc History of Surgery: Yes (BILT KNEE SX, GALL BLADDER REMVAL, CATRACT SX) Anesthesia Reaction: No Hx Neurological Disorder: Yes (NEUROPATHY) Hx Respiratory Disorders: Yes (ASTHMA) Hx Cardiac Disorders: Yes (HTN, HYPERLIPIDEMIA) Hx Psychiatric Problems: No Hx Miscellaneous Medical Probl: Yes (see PT note) Hx Alcohol Use: Yes (OCCASIONALLY) Hx Substance Use: No Hx Tobacco Use: No Smoking Status: Never smoker FmHx Family History: No diabetes Physical Exam Vitals Vital Signs Date Temp Pulse Resp B/P (MAP) Pulse Ox O2 O2 Flow FiO2 Time Delivery Rate 02/06/19 98.7 62 18 159/82 98 Nasal 00:44 (107) Cannula 02/06/19 Nasal 00:44 Cannula 02/05/19 98.7 71 18 165/76 93 21:53 (105) Physical Exam Const: No acute distress Head: Atraumatic Eyes: Normal Conjunctiva ENT: Normal External Ears, Nose and Mouth. Neck: Full range of motion. No meningismus. Resp: Clear to auscultation bilaterally Cardio: Regular rate and rhythm, no murmurs Abd: Soft, non tender, non distended. Normal bowel sounds Skin: No petechiae or rashes Back: No midline or flank tenderness Ext: No cyanosis, 1+ bilateral lower extremity pitting edema below the knees. Neur: Awake and alert Psych: Normal Mood and Affect Result Diagram: 02/06/19 0001 02/06/19 0001 Results 24 hrs Laboratory Tests Test 02/05/19 23:17 02/06/19 00:01 Blood Gas Specimen Source Blood venous Arterial Blood Date Drawn 02/05/2019 11:55:33 AM Arterial Blood Gas Puncture Site VENOUS LINE Moody Test N/A Venous Blood pH 7.439 Venous Blood pCO2 (Temp Corrected) 31.8 mmHG Venous Blood pO2 (Temp Corrected) 11.1 mmHG Venous Blood HCO3 23.7 mmol/L Venous Blood Oxygen Saturation 31.9 mmHG Venous Blood Base Excess -3.1 mmol/L Venous Blood Total Hemoglobin 12.3 g/dl Venous Blood Oxyhemoglobin 31.6 % Venous Blood Methemoglobin 0.7 % Carboxyhemoglobin 0.1 % Blood Gas Temperature 27.0 C Blood Gas Modality ROOM AIR FiO2 21.0 % Blood Gas Notified Whom MG Blood Gas Notified Time 02/06/2019 12:01:21 AM White Blood Count 8.8 10^3/ul Red Blood Count 4.62 10^6/ul Hemoglobin 11.0 g/dl Hematocrit 38.2 % Mean Corpuscular Volume 82.7 fl Mean Corpuscular Hemoglobin 23.8 pg Mean Corpuscular Hemoglobin Concent 28.8 g/dl Red Cell Distribution Width 18.0 % Platelet Count 143 10^3/UL Mean Platelet Volume 9.5 fl Immature Granulocytes % 0.300 % Neutrophils % 63.1 % Lymphocytes % 24.3 % Monocytes % 7.6 % Eosinophils % 4.0 % Basophils % 0.7 % Nucleated Red Blood Cells % 0.0 /100WBC Immature Granulocytes # 0.030 10^3/ul Neutrophils # 5.6 10^3/ul Lymphocytes # 2.1 10^3/ul Monocytes # 0.7 10^3/ul Eosinophils # 0.4 10^3/ul Basophils # 0.1 10^3/ul Nucleated Red Blood Cells # 0.0 10^3/ul Sodium Level 140 mmol/L Potassium Level 4.8 mmol/L Chloride Level 106 mmol/L Carbon Dioxide Level 22 mmol/L Anion Gap 12 Blood Urea Nitrogen 47 mg/dl Creatinine 1.85 mg/dl Est Glomerular Filtrat Rate mL/min mL/min Glucose Level 101 mg/dl Calcium Level 9.3 mg/dl Troponin I 0.022 ng/ml B-Type Natriuretic Peptide 1620 PG/ML Current Medications Medications Dose Sig/Sindi Start Time Status Last (Trade) Ordered Route PRN Stop Time Admin Dose Reason Admin Ondansetron 4 mg ER BRIDGE 02/06/19 HCl (Zofran PRN IV 03:00 Inj) NAUSEA/VOMITI 02/07/19 02:59 NG 650 mg ER BRIDGE 02/06/19 Acetaminophen PRN PO 03:00 (Tylenol .MILD PAIN 02/07/19 02:59 Tab) 1-3 OR TEMP Procedures/MDM EMERGENT LABS AND DIAGNOSTIC STUDIES: Lab Results above were reviewed and interpreted by me. CBC: Mild anemia, no evidence of infection BMP: Elevated BUN and creatinine, consistent with CKD, at patient's baseline. No evidence of clinically significant electrolyte abnormality, acidosis, hypoglycemia Troponin within normal limits, not indicative of cardiac ischemia BNP: Elevated, concerning for heart failure 12-lead EKG was interpreted by Constanza Quiroz MD: Normal Sinus Rhythm with ventricular rate of 65 beats per minute Incomplete right bundle branch block, left posterior fascicular block No acute ST or T wave changes suggestive of acute ischemia or STEMI. Radiology Results as interpreted by Radiology below were reviewed by Melecio Quiroz MD: Chest x-ray: No acute abnormalities Initial Nursing notes reviewed. Previous Medical Records requested via the Electronic Health Record. EMERGENCY DEPARTMENT COURSE / MEDICAL DECISION MAKING: Patient is presenting with progressively worsening shortness of breath with exertion. Vitals are unremarkable other than mild hypoxia on room air. However the patient seemed asymptomatic on exam. Exam was not consistent with asthma exacerbation. I did consider CHF, however her chest x-ray does not show signs of fluid overload. Given her elevated BNP, as well as her bilateral lower extremity edema, I am concerned about cardiac etiology. Discussed this with the patient and recommended admission for observation and further cardiac work-up. Her PCP is agreeable with this plan. Patient is also agreeable. I did consider pulmonary embolism, but I have a lower suspicion for this. On the differential is also CHF and ACS. Accepting Care Team: Current data and ongoing care discussed. Time: Time of admission Primary Provider: Dr. Vernon Consulting: Seth Hogan with Cardiology Outstanding Data: none Departure Diagnosis: Primary Impression: Dyspnea on minimal exertion Condition: Fair MORE QUIROZ MD Feb 05, 2019 23:22
[2019-02-06] MEDS ORDERED: FURO40TA4 PO (01:50)
[2019-02-06] MEDS ORDERED: BROM3DRO OP (01:50)
[2019-02-06] MEDS ORDERED: ACETAMINOPHEN 325 MG TAB PO PRN ×2 (03:00→07:00)
[2019-02-06] MEDS ORDERED: ONDANSETRON 4 MG INJ IV PRN (03:00)
[2019-02-06] MEDS ORDERED: ONDANSETRON 4 MG TAB PO PRN (07:00)
[2019-02-06] MEDS ORDERED: HYDROCODONE/APAP (5/325) TAB PO PRN (07:00)
[2019-02-06] MEDS ORDERED: DOCUSATE SODIUM 100 MG CAP PO PRN (07:00)
[2019-02-06] MEDS ORDERED: LORAZEPAM 0.5 MG TAB PO PRN (07:00)
[2019-02-06] MEDS ORDERED: LOPERAMIDE 2 MG CAP PO PRN (07:00)
[2019-02-06] MEDS ORDERED: NACL 0.9% 3 ML SYG IV SCH (07:00)
[2019-02-06] MEDS ORDERED: FUROSEMIDE 20 MG TAB PO SCH (07:30)
[2019-02-06] MEDS ORDERED: LEVOTHYROXINE 75 MCG TAB PO SCH (07:30)
--- NOTE | 2019-02-06 08:46 | CONS ---
Assessment/Plan Assessment/Plan Assessment/Plan (Daily) ALVAREZ Elevated BNP HTN Thyroid Disorder Neuropathy Renal Insuff ?Asthma -No overt CHF by exam and elevated BNP possibly due to renal insuff, normal CXR -Will review echocardiogram -Increae cardizem due to elevated BP -Will consider a cardiolyte -monitor for arrythmias -?need of MDI, HHN, steroids - will defer to Dr Vernon if true hx of asthma Consultation Date/Type/Reason Admit Date/Time Type of Consult Cardiology Date/Time of Note DATE: 02/06/19 TIME: 08:41 Hx of Present Illness 78-year-old female with a history of hypertension, asthma and CKD brought in by a friend for shortness of breath that has been going on for for the past 2 months but progressively worsening within the last few days. Today she had difficulty with breathing while ambulating a short distance to her bathroom. Per her friend, she could not wait for her to arrive so patient called ambulance as she was really feeling unwell. However when friend arrived, she brought her to the ER. Patient is denying any associated chest pain. Patient's friend thinks that she has not been using her asthma medications appropriately. No dizziness or near syncopal episodes at home. No fevers or chills. No cough or hemoptysis.. Past Medical History Home Meds Active Scripts Loperamide Hcl* (Imodium*) 2 Mg Capsule, 2 MG PO .AFTER EA LOOSE BM PRN for DIARRHEA, #10 TAB Prov:MORE MERLOS MD 10/25/18 Reported Medications Bromfenac Sodium (Prolensa) 3 Ml Drops, 1 DROP OP DAILY, BOTTLE 1 drop Left eye daily 02/06/19 Furosemide* (Furosemide*) 40 Mg Tablet, 20 MG PO DAILY for 30 Days take one half tab by mouth daily 02/06/19 Celecoxib* (Celebrex*) 100 Mg Capsule, 100 MG PO BID, CAP PER PT HOLD MEDICATION TEMPORARY 06/02/18 Metformin* (Glucophage* XR) 500 Mg Tab.sr.24h, 250 MG PO DAILY, #30 TAB 04/12/18 Vit A/Vit C/Vit E/Zinc/Copper (Preservision Areds Softgel) 1 Each Capsule, 1 EACH PO BID, CAP 04/12/18 Terazosin Hcl* (Terazosin Hcl*) 2 Mg Capsule, 2 MG PO HS, CAP 04/12/18 Salmeterol Xinaf/Fluticasone* (Advair*) 250-50 Diskus Inhaler, 1 INH INHALATION BID, #1 INHALER 04/12/18 Brinzolamide-Brimonidine (Simbrinza 1%-0.2% Oph) 1%-0.2% - 8 Ml Drops.susp, 1 DROP BOTH EYES BID, EA 04/12/18 Montelukast Sodium* (Singulair*) 10 Mg Tablet, 10 MG PO QHS, #30 TAB 04/12/18 Levothyroxine Sodium* (Levothyroxine Sodium*) 75 Mcg Tablet, 75 MCG PO BEFORE BREAKFAST, #30 TAB 04/12/18 Lactobacillus Acidophilus* (Lactinex*) 1 Tab Chew, 1 TAB PO DAILY, TAB 04/12/18 Gabapentin* (Gabapentin*) 800 Mg Tablet, 800 MG PO QHS, #90 TAB 04/12/18 Famotidine* (Famotidine*) 20 Mg Tablet, 20 MG PO Q12H, #60 TAB 04/12/18 Diltiazem Hcl* (Cardizem CD*) 120 Mg Cap.sr.24h, 120 MG PO DAILY, #30 CAP HOLD IF SBP<110 04/12/18 Cholecalciferol* (Vitamin D3*) 1,000 Unit Tablet, 1000 UNIT PO DAILY, TAB 04/12/18 Medications Current Medications Ondansetron HCl (Zofran Inj) 4 mg ER BRIDGE PRN IV NAUSEA/VOMITING; Start 02/06/19 at 03:00; Stop 02/07/19 at 02:59 Acetaminophen (Tylenol Tab) 650 mg ER BRIDGE PRN PO .MILD PAIN 1-3 OR TEMP; Start 02/06/19 at 03:00; Stop 02/07/19 at 02:59 IV Flush (NS 3 ml) 3 ml PER PROTOCOL IV ; Start 02/06/19 at 07:00; Status UNV Lorazepam (Ativan) 0.5 mg Q8H PRN PO .ANXIETY; Start 02/06/19 at 07:00; Status UNV Ondansetron HCl (Zofran Tab) 4 mg Q6H PRN PO NAUSEA/VOMITING; Start 02/06/19 at 07:00; Status UNV Acetaminophen (Tylenol Tab) 650 mg Q6H PRN PO .PAIN 1-3 OR TEMP; Start 02/06/19 at 07:00; Status UNV Acetaminophen/ Hydrocodone Bitart ([place] (5/325)) 1 tab Q6H PRN PO .PAIN 4-6; Start 02/06/19 at 07:00; Status UNV Docusate Sodium (Colace) 100 mg Q12H PRN PO .CONSTIPATION; Start 02/06/19 at 07 :00; Status UNV Famotidine (Pepcid) 20 mg DAILY PO ; Start 02/06/19 at 09:00 Heparin Sodium (Porcine) (Heparin (5000 Units/1ml)) 5,000 unit Q12 SC ; Start 02/06/19 at 09:00 Celecoxib (Celebrex) 100 mg BID PO ; Start 02/06/19 at 09:00 Cholecalciferol (Vitamin D) 1,000 unit DAILY PO ; Start 02/06/19 at 09:00 Diltiazem HCl (Cardizem Cd) 120 mg DAILY PO ; Start 02/06/19 at 09:00 Furosemide (Lasix) 20 mg DAILY@0600 PO Last administered on 02/06/19at 08:14; Admin Dose 20 MG; Start 02/06/19 at 07:30 Gabapentin (Neurontin) 800 mg QHS PO ; Start 02/06/19 at 21:00; Status UNV Levothyroxine Sodium (Synthroid) 75 mcg BEFORE BREAKFAST PO Last administered on 02/06/19at 08:05; Admin Dose 75 MCG; Start 02/06/19 at 07:30 Loperamide HCl (Imodium Cap) 2 mg AFTER EA LOOSE BM PRN PO DIARRHEA; Start 02/06/19 at 07:00; Status UNV Metformin HCl (Glucophage Xr) 250 mg DAILY PO ; Start 02/06/19 at 09:00; Status UNV Montelukast Sodium (Singulair) 10 mg QHS PO ; Start 02/06/19 at 21:00; Status UNV Terazosin HCl (Hytrin) 2 mg HS PO ; Start 02/06/19 at 21:00; Status UNV Miscellaneous Information 1 drop BID BOTH EYES ; Start 02/06/19 at 09:00; Status UNV Miscellaneous Information 1 drop DAILY OP ; Start 02/06/19 at 09:00; Status UNV Miscellaneous Information 1 tab DAILY PO ; Start 02/06/19 at 09:00; Status UNV Miscellaneous Information 1 inh BID INHALATION ; Start 02/06/19 at 09:00; Status UNV Miscellaneous Information 1 each BID PO ; Start 02/06/19 at 09:00; Status UNV Allergies: Coded Allergies: amoxicillin (Unverified Allergy, Unknown, 02/06/19) Past Surgical History Past Surgical Hx: noncontributory Social History Smoking Status: Never smoker Exam/Review of Systems Vital Signs Vitals Vital Signs Date Temp Pulse Resp B/P (MAP) Pulse Ox O2 O2 Flow FiO2 Time Delivery Rate 02/06/19 98.7 62 18 159/82 98 Nasal 00:44 (107) Cannula Labs Result Diagram: 02/06/19 0001 02/06/19 0001 Results 24hrs Laboratory Tests Test 02/05/19 23:17 02/06/19 00:01 02/06/19 07:10 02/06/19 07:28 Blood Gas Blood venous Blood arterial Specimen Source Arterial Blood 02/05/2019 11:55 02/06/2019 7:18: Date Drawn :33 AM 15 AM Arterial Blood VENOUS LINE Right Radial Gas Puncture Site Moody Test N/A ACCEPTAB Venous Blood pH 7.439 H Venous Blood 31.8 L pCO2 (Temp Corrected) Venous Blood pO2 11.1 L (Temp Corrected) Venous Blood 23.7 HCO3 Venous Blood 31.9 L Oxygen Saturation Venous Blood -3.1 Base Excess Venous Blood 12.3 Total Hemoglobin Venous Blood 31.6 Oxyhemoglobin Venous Blood 0.7 Methemoglobin Carboxyhemoglobi 0.1 n Blood Gas 27.0 37.0 Temperature Blood Gas ROOM AIR ROOM AIR Modality FiO2 21.0 21.0 Blood Gas MG M.D. Notified Whom Blood Gas 02/06/2019 12:01 02/06/2019 7:29: Notified Time :21 AM 36 AM White Blood 8.8 # Count Red Blood Count 4.62 Hemoglobin 11.0 L Hematocrit 38.2 Mean Corpuscular 82.7 Volume Mean Corpuscular 23.8 L Hemoglobin Mean Corpuscular 28.8 L Hemoglobin Nichole nt Red Cell 18.0 H Distribution Width Platelet Count 143 Mean Platelet 9.5 Volume Immature 0.300 Granulocytes % Neutrophils % 63.1 Lymphocytes % 24.3 Monocytes % 7.6 Eosinophils % 4.0 Basophils % 0.7 Nucleated Red 0.0 Blood Cells % Immature 0.030 Granulocytes # Neutrophils # 5.6 Lymphocytes # 2.1 Monocytes # 0.7 Eosinophils # 0.4 Basophils # 0.1 Nucleated Red 0.0 Blood Cells # Sodium Level 140 Potassium Level 4.8 Chloride Level 106 Carbon Dioxide 22 Level Anion Gap 12 Blood Urea 47 H Nitrogen Creatinine 1.85 H Est Glomerular Filtrat Rate mL/min Glucose Level 101 Calcium Level 9.3 Troponin I 0.022 0.021 B-Type 1620 H Natriuretic Peptide Arterial Blood 7.375 pH (Temp corrected) Arterial Blood 41.4 pCO2 (Temp correct) Arterial Blood 63.6 L pO2 (Temp corrected) Arterial Blood 23.7 HCO3 Arterial Blood -1.5 Base Excess Arterial Blood 91.1 L Oxygen Saturatio n Arterial 0.6 Blood Carboxyhem oglobin Arterial Blood 0.3 Methemoglobin Blood Gas A-a O2 36.6 H Differential Oxyhemoglobin 90.3 L Percent Creatine Kinase 22 L Creatine Kinase 6.7 Index Creatinine 1.47 Kinase MB (Mass) Medications Medications Current Medications Ondansetron HCl (Zofran Inj) 4 mg ER BRIDGE PRN IV NAUSEA/VOMITING; Start 02/06/19 at 03:00; Stop 02/07/19 at 02:59 Acetaminophen (Tylenol Tab) 650 mg ER BRIDGE PRN PO .MILD PAIN 1-3 OR TEMP; Start 02/06/19 at 03:00; Stop 02/07/19 at 02:59 IV Flush (NS 3 ml) 3 ml PER PROTOCOL IV ; Start 02/06/19 at 07:00; Status UNV Lorazepam (Ativan) 0.5 mg Q8H PRN PO .ANXIETY; Start 02/06/19 at 07:00; Status UNV Ondansetron HCl (Zofran Tab) 4 mg Q6H PRN PO NAUSEA/VOMITING; Start 02/06/19 at 07:00; Status UNV Acetaminophen (Tylenol Tab) 650 mg Q6H PRN PO .PAIN 1-3 OR TEMP; Start 02/06/19 at 07:00; Status UNV Acetaminophen/ Hydrocodone Bitart ([place] (5/325)) 1 tab Q6H PRN PO .PAIN 4-6; Start 02/06/19 at 07:00; Status UNV Docusate Sodium (Colace) 100 mg Q12H PRN PO .CONSTIPATION; Start 02/06/19 at 07:00; Status UNV Famotidine (Pepcid) 20 mg DAILY PO ; Start 02/06/19 at 09:00 Heparin Sodium (Porcine) (Heparin (5000 Units/1ml)) 5,000 unit Q12 SC ; Start 02/06/19 at 09:00 Celecoxib (Celebrex) 100 mg BID PO ; Start 02/06/19 at 09:00 Cholecalciferol (Vitamin D) 1,000 unit DAILY PO ; Start 02/06/19 at 09:00 Diltiazem HCl (Cardizem Cd) 120 mg DAILY PO ; Start 02/06/19 at 09:00 Furosemide (Lasix) 20 mg DAILY@0600 PO Last administered on 02/06/19at 08:14; Admin Dose 20 MG; Start 02/06/19 at 07:30 Gabapentin (Neurontin) 800 mg QHS PO ; Start 02/06/19 at 21:00; Status UNV Levothyroxine Sodium (Synthroid) 75 mcg BEFORE BREAKFAST PO Last administered on 02/06/19at 08:05; Admin Dose 75 MCG; Start 02/06/19 at 07:30 Loperamide HCl (Imodium Cap) 2 mg AFTER EA LOOSE BM PRN PO DIARRHEA; Start at 07:00; Status UNV Metformin HCl (Glucophage Xr) 250 mg DAILY PO ; Start 02/06/19 at 09:00; Status UNV Montelukast Sodium (Singulair) 10 mg QHS PO ; Start 02/06/19 at 21:00; Status UNV Terazosin HCl (Hytrin) 2 mg HS PO ; Start 02/06/19 at 21:00; Status UNV Miscellaneous Information 1 drop BID BOTH EYES ; Start 02/06/19 at 09:00; Status UNV Miscellaneous Information 1 drop DAILY OP ; Start 02/06/19 at 09:00; Status UNV Miscellaneous Information 1 tab DAILY PO ; Start 02/06/19 at 09:00; Status UNV Miscellaneous Information 1 inh BID INHALATION ; Start 02/06/19 at 09:00; Status UNV Miscellaneous Information 1 each BID PO ; Start 02/06/19 at 09:00; Status UNV LOUISE ARENAS MD Feb 06, 2019 08:46
[2019-02-06] MEDS ORDERED: BROMFENAC SODIUM OP SCH (09:00)
[2019-02-06] MEDS ORDERED: NON-FORMULARY/PATIENT OWN MED (Salmeterol Xinaf/Fluticasone* (Advair*) 1 INH) INHALATION SCH (09:00)
[2019-02-06] MEDS ORDERED: CHOLECALCIFEROL 1,000 UNIT TAB PO SCH (09:00)
[2019-02-06] MEDS ORDERED: LACTOBACILLUS RHAMNOSUS CAP PO SCH (09:00)
[2019-02-06] MEDS ORDERED: CELECOXIB 100 MG CAP PO SCH (09:00)
[2019-02-06] MEDS ORDERED: NON-FORMULARY/PATIENT OWN MED (Brinzolamide-Brimonidine (Simbrinza 1%-0.2% Oph) 1 DROP) BOTH EYES SCH (09:00)
[2019-02-06] MEDS ORDERED: FAMOTIDINE 20 MG TAB PO SCH (09:00)
[2019-02-06] MEDS ORDERED: HEPARIN 5,000 UNIT/1 ML VIAL SC SCH (09:00)
[2019-02-06] MEDS ORDERED: metFORMIN (XR) 500 MG TAB PO SCH (09:00)
[2019-02-06] MEDS ORDERED: DILTIAZEM (CD) 120 MG CAP PO SCH ×2 (09:00)
[2019-02-06] MEDS ORDERED: DILTIAZEM (CD) 180 MG CAP PO SCH (10:30)
[2019-02-06] MEDS ORDERED: DEXTROSE 50% 50 ML SYRINGE IV PRN ×2 (10:30)
[2019-02-06] MEDS ORDERED: GLUCAGON 1 MG INJ IM PRN (10:30)
[2019-02-06] MEDS ORDERED: GLUCOSE GEL 15 GRAM TUBE BUCCAL PRN (10:30)
[2019-02-06] MEDS ORDERED: GLUCOSE GEL 15 GRAM TUBE PO PRN ×2 (10:30)
[2019-02-06 13:30] VITALS: BP 163/58; PULSE 69; RESP 22
--- NOTE | 2019-02-06 13:30 | HP ---
Date/Time of Note Date/Time of Note DATE: 02/06/19 TIME: 13:22 Assessment/Plan VTE Prophylaxis SCD contraindicated: low risk/ambulating Pharmacological prophylaxis: heparin Pharm contraindication: low risk/ambulating Lines/Catheters [facility] [place] Assessment/Plan Hospital Course Patient was ruled out in the emergency room and has done well. Since her breathing is back to baseline going to go ahead and discharge her with outpatient follow-up. Problems: (1) Moderate persistent asthma Status: Chronic Comment: She had an exacerbation due to not being on her medications. She has been treated has been re-counseled. Because of the possibility that she could have some occult coronary disease she will be following up with Dr. Arenas as an outpatient to make sure that there is no other abnormalities Qualifiers: Asthma complication type: with acute exacerbation Qualified Codes: J45.41 - Moderate persistent asthma with (acute) exacerbation (2) Type 2 diabetes mellitus with diabetic polyneuropathy Status: Chronic Comment: Stable control Qualifiers: Diabetes mellitus chcf insulin use: without economic historian use Qualified Codes: E11.42 - Type 2 diabetes mellitus with diabetic polyneuropathy (3) Essential (primary) hypertension Status: Chronic Comment: Adjust upward on diltiazem as per etiology (4) Acquired hypothyroidism Status: Chronic Comment: Continue replacement therapy (5) Hyperlipidemia associated with type 2 diabetes mellitus Status: Chronic Comment: Adequate control (6) B12 deficiency Status: Chronic Comment: Stable on replacement (7) Chronic kidney disease, stage III (moderate) Status: Chronic Comment: Stable (8) Glaucoma Status: Chronic Comment: Continue with treatment Qualifiers: Glaucoma type: unspecified Result Diagram: 02/06/19 0001 02/06/19 0001 Results 24hrs Laboratory Tests Test 02/05/19 23:17 02/06/19 00:01 02/06/19 07:10 02/06/19 07:28 Blood Gas Blood venous Blood arterial Specimen Source Arterial Blood 02/05/2019 11:55 02/06/2019 7:18: Date Drawn :33 AM 15 AM Arterial Blood VENOUS LINE Right Radial Gas Puncture Site Moody Test N/A ACCEPTAB Venous Blood pH 7.439 H Venous Blood 31.8 L pCO2 (Temp Corrected) Venous Blood pO2 11.1 L (Temp Corrected) Venous Blood 23.7 HCO3 Venous Blood 31.9 L Oxygen Saturation Venous Blood -3.1 Base Excess Venous Blood 12.3 Total Hemoglobin Venous Blood 31.6 Oxyhemoglobin Venous Blood 0.7 Methemoglobin Carboxyhemoglobi 0.1 n Blood Gas 27.0 37.0 Temperature Blood Gas ROOM AIR ROOM AIR Modality FiO2 21.0 21.0 Blood Gas MG M.D. Notified Whom Blood Gas 02/06/2019 12:01 02/06/2019 7:29: Notified Time :21 AM 36 AM White Blood 8.8 # Count Red Blood Count 4.62 Hemoglobin 11.0 L Hematocrit 38.2 Mean Corpuscular 82.7 Volume Mean Corpuscular 23.8 L Hemoglobin Mean Corpuscular 28.8 L Hemoglobin Nichole nt Red Cell 18.0 H Distribution Width Platelet Count 143 Mean Platelet 9.5 Volume Immature 0.300 Granulocytes % Neutrophils % 63.1 Lymphocytes % 24.3 Monocytes % 7.6 Eosinophils % 4.0 Basophils % 0.7 Nucleated Red 0.0 Blood Cells % Immature 0.030 Granulocytes # Neutrophils # 5.6 Lymphocytes # 2.1 Monocytes # 0.7 Eosinophils # 0.4 Basophils # 0.1 Nucleated Red 0.0 Blood Cells # Sodium Level 140 Potassium Level 4.8 Chloride Level 106 Carbon Dioxide 22 Level Anion Gap 12 Blood Urea 47 H Nitrogen Creatinine 1.85 H Est Glomerular Filtrat Rate mL/min Glucose Level 101 Calcium Level 9.3 Troponin I 0.022 0.021 B-Type 1620 H Natriuretic Peptide Arterial Blood 7.375 pH (Temp corrected) Arterial Blood 41.4 pCO2 (Temp correct) Arterial Blood 63.6 L pO2 (Temp corrected) Arterial Blood 23.7 HCO3 Arterial Blood -1.5 Base Excess Arterial Blood 91.1 L Oxygen Saturatio n Arterial 0.6 Blood Carboxyhem oglobin Arterial Blood 0.3 Methemoglobin Blood Gas A-a O2 36.6 H Differential Oxyhemoglobin 90.3 L Percent Creatine Kinase 22 L Creatine Kinase 6.7 Index Creatinine 1.47 Kinase MB (Mass) CC: LOUISE ARENAS MD ; HPI/ROS Admit Date/Time Admit Date/Time February 06, 2019 Hx of Present Illness 78-year-old single female who came in by by family with complaint of shortness of breath. She has had intermittent history of shortness of breath a nd has a known history of asthma COPD overlap. In addition of this she has a known history of diastolic dysfunction. In the remote past she had a cardiac stress test performed by Dr. Osborne that was unremarkable. She had missed several dosages of her Advair as well as her Montellukast. Her dyspnea became more severe and she presented. She was not having any chest pain palpitations orthopnea or PND. ROS Please note since the patient is doing so I am going to go ahead and discharge her since she is already ruled out and has been evaluated in the emergency room. Constitutional: no complaints (No fevers chills or sweats) Eyes: no complaints ENT: congestion (Congestion now resolved) Respiratory: shortness of breath (Especially dyspnea on exertion) Cardiovascular: no complaints Gastrointestinal: no complaints Genitourinary: no complaints Musculoskeletal: no complaints Skin: no complaints Neurologic: no complaints Endocrine: no complaints Lymphatic: no complaints PMH/Family/Social Past Medical History Medical History: diabetes (Diabetes mellitus type 2), GERD, high cholesterol, hypertension, hypothyroid, renal disease (Kidney disease stage III), other (Allergic rhinitis; B12 deficiency; glaucoma) Medications Current Medications Ondansetron HCl (Zofran Inj) 4 mg ER BRIDGE PRN IV NAUSEA/VOMITING; Start 02/06 at 03:00; Stop 02/07/19 at 02:59 IV Flush (NS 3 ml) 3 ml PER PROTOCOL IV ; Start 02/06/19 at 07:00 Lorazepam (Ativan) 0.5 mg Q8H PRN PO .ANXIETY; Start 02/06/19 at 07:00 Ondansetron HCl (Zofran Tab) 4 mg Q6H PRN PO NAUSEA/VOMITING; Start 02/06/19 at 07:00 Acetaminophen (Tylenol Tab) 650 mg Q6H PRN PO .PAIN 1-3 OR TEMP; Start 02/06/19 at 07:00 Acetaminophen/ Hydrocodone Bitart ([place] (5/325)) 1 tab Q6H PRN PO .PAIN 4-6; Start 02/06/19 at 07:00 Docusate Sodium (Colace) 100 mg Q12H PRN PO .CONSTIPATION; Start 02/06/19 at 07:00 Famotidine (Pepcid) 20 mg DAILY PO Last administered on 02/06/19at 09:40; Admin Dose 20 MG; Start 02/06/19 at 09:00 Heparin Sodium (Porcine) (Heparin (5000 Units/1ml)) 5,000 unit Q12 SC Last administered on 02/06/19 09:00; Admin Dose 5,000 UNIT; Start 02/06/19 at 09:00 Celecoxib (Celebrex) 100 mg BID PO Last administered on 02/06/19 09:39; Admin Dose 100 MG; Start 02/06/19 at 09:00 Cholecalciferol (Vitamin D) 1,000 unit DAILY PO Last administered on 02/06/19 09:39; Admin Dose 1,000 UNIT; Start 02/06/19 at 09:00 Furosemide (Lasix) 20 mg DAILY@0600 PO Last administered on 02/06/19 08:14; Admin Dose 20 MG; Start 02/06/19 at 07:30 Gabapentin (Neurontin) 800 mg QHS PO ; Start 02/06/19 at 21:00 Levothyroxine Sodium (Synthroid) 75 mcg BEFORE BREAKFAST PO Last administered on 02/06/19at 08:05; Admin Dose 75 MCG; Start 02/06/19 at 07:30 Loperamide HCl (Imodium Cap) 2 mg AFTER EA LOOSE BM PRN PO DIARRHEA; Start 02/06/19 at 07:00 Metformin HCl (Glucophage Xr) 250 mg DAILY PO ; Start 02/06/19 at 09:00; Status UNV Montelukast Sodium (Singulair) 10 mg QHS PO ; Start 02/06/19 at 21:00 Terazosin HCl (Hytrin) 2 mg HS PO ; Start 02/06/19 at 21:00 Miscellaneous Information 1 drop BID BOTH EYES ; Start 02/06/19 at 09:00; Status UNV Miscellaneous Information 1 drop DAILY OP ; Start 02/06/19 at 09:00; Status UNV Lactobacillus Acidophilus/ Rhamnosus (Culturelle) 1 cap DAILY PO Last administered on 02/06/19at 11:54; Admin Dose 1 CAP; Start 02/06/19 at 09:00 Miscellaneous Information 1 inh BID INHALATION ; Start 02/06/19 at 09:00; Status UNV Miscellaneous Information 1 each BID PO ; Start 02/06/19 at 09:00; Status UNV Diltiazem HCl (Cardizem Cd) 180 mg DAILY PO Last administered on 4/26/19at 10:45; Admin Dose 180 MG; Start 02/06/19 at 10:30 Miscellaneous Information 1 ea NOTE XX ; Start 02/06/19 at 10:30 Glucose (Glutose) 15 gm Q15M PRN PO DECREASED GLUCOSE; Start 02/06/19 at 10:30 Glucose (Glutose) 22.5 gm Q15M PRN PO DECREASED GLUCOSE; Start 02/06/19 at 10:30 Dextrose (D50w Syringe) 25 ml Q15M PRN IV DECREASED GLUCOSE; Start 02/06/19 at 10:30 Dextrose (D50w Syringe) 50 ml Q15M PRN IV DECREASED GLUCOSE; Start 02/06/19 at 10:30 Glucagon (Glucagen) 1 mg Q15M PRN IM DECREASED GLUCOSE; Start 02/06/19 at 10:30 Glucose (Glutose) 15 gm Q15M PRN BUCCAL DECREASED GLUCOSE; Start 02/06/19 at 10:30 Coded Allergies: amoxicillin (Unverified Allergy, Unknown, 02/06/19) Past Surgical History Past Surgical Hx: noncontributory Family History Significant Family History: no pertinent family hx, diabetes, hypertension Social History Alcohol Use: none Smoking Status: Never smoker Drug Use: none Exam/Review of Systems Vital Signs Vitals Vital Signs Date Temp Pulse Resp B/P (MAP) Pulse Ox O2 O2 Flow FiO2 Time Delivery Rate 02/06/19 98.3 64 20 167/62 98 Room Air 12:00 (97) Exam Exam She was examined in the emergency room in bed 6 after having received her respiratory medications. She reports she was feeling much better. Constitutional: alert Psych: no complaints, nl mood/affect Head: normocephalic, atraumatic Eyes: nl conjunctiva, EOMI, nl lids ENMT: nl external ears & nose, nl lips & teeth, nl nasal mucosa & septum, tympanic membranes (Right tympanic membrane obscured with cerumen) Neck: supple, non-tender Respiratory: clear to auscultation, normal air movement Cardiovascular: regular rate and rhythm, nl pulses Gastrointestinal: soft, nl liver, spleen, non-tender Extremities: normal pulses, edema (Trace edema) Neurological: LOCATION WORKER II-XII intact, nl mental status, nl speech, nl strength Lymph: nl lymph nodes ANASTACIA CHESTER MD Feb 06, 2019 13:30
--- NOTE | 2019-02-06 13:31 | PDOCDIS ---
Discharge Instructions DIAGNOSIS Discharge Diagnosis Asthma COPD overlap syndrome; B12 deficiency; chronic kidney disease; diabetes mellitus type 2; CONDITION [id number] Patient Condition: [id number] Good HOME CARE INSTRUCTIONS: [id number] Special Diet: [id number] Carbohydrate restricted ACTIVITY: [id number] Activity Restrictions: [id number] Slowly Increase Activity FOLLOW UP/APPOINTMENTS Follow-up Plan Please see cardiology within the week; Dr. Vernon in 3 weeks ANASTACIA VERNON MD Feb 06, 2019 13:31
[2019-02-06] MEDS ORDERED: DILT180C72 PO (13:32)
--- NOTE | 2019-02-06 13:35 | RADRPT ---
Echocardiogram Report Patient Name: AUSTIN RAMIREZLYPatient ID: [id number] : 1940 (78y 6m)Study Date: 02/06/2019 9:15:47 AM Gender: FAccession #: [id number] Tech: Liu Hagen [facility] Location: [facility] Ref.Physician: ANASTACIA CHESTER Height(Cm): BSA: Weight(Kg): Quality: AdequateAccount #: Procedures: Echocardiographic Report: Transthoracic echocardiogram with complete 2D, M-Mode, and doppler examination. Indications: Dyspnea. Measurements: 2D/M Mode Doppler Measurement Value Normal Range Measurement Value Normal Range LVIDd 2D 4.3 [ 3.8 - 5.2 ] cm AV Peak Cornell 1.7 [ 100.0 - 170.0 ] cm/sec LVIDs 2D 2.7 [ 2.2 - 3.5 ] cm AV Peak PG 11.0 [ 2.0 - 9.0 ] mmHg LVPWd 2D 1.0 [ 0.6 - 0.9 ] cm LVOT Peak Cornell 1.0 [ 70.0 - 110.0 ] cm/sec IVSd 2D 1.1 [ 0.6 - 0.9 ] cm LVOT Peak PG 4.0 [ 2.0 - 6.0 ] mmHg AoR Diam 2D 2.5 [ 2.3 - 3.1 ] cm MV E Peak Cornell 1.0 [ 60.0 - 130.0 ] cm/sec EDV 2D 82.6 [ 46.0 - 106.0 ] ml MV A Peak Cornell 1.3 [ 100.0 - 120.0 ] cm/sec ESV 2D 26.0 [ 14.0 - 42.0 ] ml MV E/A 0.7 [ 0.8 - 1.5 ] ratio EF 2D 68.5 [ 54.0 - 74.0 ] percent MV Decel Time 155 [ 104 - 258 ] msec LA Dimen 2D 3.9 [ 2.7 - 3.8 ] cm Lat E` Cornell 0.1 [ 10.0 - 15.0 ] cm/sec Lateral E/E` 12.2 [ 1.0 - 2.0 ] ratio MV E/A 0.7 [ 0.8 - 1.5 ] ratio TR Peak Cornell 1.8 [ 100.0 - 280.0 ] cm/sec TR Peak PG 13.0 mmHg RVSP 16.0 [ 10.0 - 36.0 ] mmHg Findings: Left Ventricle: Normal left ventricular systolic function. Normal left ventricular cavity size. Sigmoid septum. Ejection fraction is visually estimated at 60-65 %. Tissue Doppler/Mitral Doppler indices are consistent with impaired relaxation (Stage I diastolic dysfunction). Right Ventricle: Normal right ventricular size. Normal right ventricular systolic function. Left Atrium: The left atrium is normal in size. Right Atrium: The right atrium is normal in size. Mitral Valve: Mild mitral leaflet calcification. Mild mitral annular calcification. Trace mitral regurgitation. Aortic Valve: No hemodynamically significant aortic stenosis by doppler. Aortic cusps appear mildly calcified. Tricuspid Valve: Normal appearance of the tricuspid valve. Estimated peak PA systolic pressure 16 mmHg. There is trace tricuspid regurgitation. Pulmonic Valve: Normal pulmonic valve appearance. Pericardium: Normal pericardium with no significant pericardial effusion. Aorta: Normal aortic root. IVC: Normal size and normal respiratory collapse consistent with normal right atrial pressure. Conclusions: Normal left ventricular systolic function. Normal left ventricular cavity size. Sigmoid septum. Ejection fraction is visually estimated at 60-65 %. Tissue Doppler/Mitral Doppler indices are consistent with impaired relaxation (Stage I diastolic dysfunction). Mild mitral leaflet calcification. Mild mitral annular calcification. Trace mitral regurgitation. No hemodynamically significant aortic stenosis by doppler. Aortic cusps appear mildly calcified. Normal appearance of the tricuspid valve. Estimated peak PA systolic pressure 16 mmHg. There is trace tricuspid regurgitation. Normal size and normal respiratory collapse consistent with normal right atrial pressure. Normal right ventricular size. Normal right ventricular systolic function. The left atrium is normal in size. The right atrium is normal in size. Normal pulmonic valve appearance. Normal pericardium with no significant pericardial effusion. Normal aortic root. Electronically Signed By: Sohail Barron 2019-02-06 13:34:54 PDT
[2019-02-06] MEDS ORDERED: MONTELUKAST 10 MG TAB PO SCH (21:00)
[2019-02-06] MEDS ORDERED: TERAZOSIN 2 MG CAP PO SCH (21:00)
[2019-02-06] MEDS ORDERED: GABAPENTIN 400 MG CAP PO SCH (21:00)
== END 2019-02-06 14:51 | disposition home or self-care (01) ==
LOC: FTE 21:29 → E/R 02-06 14:51 → CANBEDREQ 02-06 18:23
DX: R06.00 Dyspnea, unspecified (principal); I12.9 Hypertensive chronic kidney disease with stage 1 through stage 4 chronic kidney disease, or unspecified chronic kidney disease; N18.9 Chronic kidney disease, unspecified; J45.901 Unspecified asthma with (acute) exacerbation
CPT/HCPCS: 36415; 36600; 71045; 80048; 82550; 82553; 82803; 83880; 84484; 85025; 93005; 93306; 96372; 99285; J1644